=== PATIENT | male | born 1975 | race Caucasian/White ===

== ENCOUNTER 2019-06-14 09:11 | Emergency (ER) | payer SELFPAY ==
[2019-06-14 09:19] VITALS: BP 132/82; PULSE 80; RESP 16; TEMP 36.8; O2SAT 95; BMI 29.5
--- NOTE | 2019-06-14 09:29 | XR_ITS ---
WS: [id number] Chest 2 views, 06/14/2019 Clinical Data: pain Comparison: PA chest, 12/31/2018. Findings: No nodules, masses or effusions are seen. The heart is normal. The pulmonary vascularity is not increased. No pneumonia or pneumothorax is seen. XR/XR chest 2V* [id number] Impression: Negative chest.
[2019-06-14 10:23] LABS: Influenza A by IFA Negative (Negative); Influenza B by IFA Negative (Negative)
--- NOTE | 2019-06-14 11:03 | ED_ITS ---
Entered by Brianne Su, acting as scribe for Millie Vasquez MD, [facility] Jun 14, 2019 09:11 HPI - Fever General: Chief Complaint: Fever Stated Complaint: N/V CP X 7DAYS Time Seen by Provider: 06/14/19 09:17 Source: patient Mode of arrival: ambulatory Limitations: no limitations History of Present Illness: HPI Narrative: 43 yo Male presents to ED with complaint of flu like symptoms x 2 weeks. Pt states that he was recently diagnosed with Ham[place] Spotted Fever and was treated for it just prior to this illness. Pt states that this time started out with chest pains and nausea. Pt states his symptoms then turned into flu like symptoms with high fever, cough, nausea, vomiting, and diarrhea. Pt states that he was treated with a 5 day pack of Zpak. Pt states that he has a history of seizures. MD elicited complaint: fever Onset (ago): week(s) Context: recent antibiotic use Exacerbating factors: nothing Relieving factors: nothing Associated symptoms: Reports abdominal pain, cough, diarrhea, nausea, night sweats and vomiting; Deny back/flank pain, chest pain, dysuria, extremity pain or headache(s) Review of Systems General: Reports: 10 or more systems reviewed and unremarkable except in HPI and below Const: Reports: fever and night sweats; Denies: body aches Eyes: Denies: change in vision, blurry vision or blind spots ENMT: Denies: throat pain, enlarged tonsils, painful swallowing, hoarseness, mouth pain or swelling of lips/tongue Card: Denies: chest pain, palpitations, irregular heart rhythm, edema or swelling of feet/ankles Resp: Denies: shortness of breath, productive cough or non-productive cough GI: Reports: abdominal pain, nausea, vomiting and diarrhea : Denies: flank pain, painful urination, urinary frequency, urinary urgency or urinary hesitancy Musc: Denies: neck pain, back pain, extremity pain, extremity swelling or joint pain Skin/Breast: Denies: rash, itching or redness Neuro: Denies: headache, numbness in extremities or weakness in extremities Endo: Denies: excessive urination, excessive thirst or tired all the time PFS ED PFSH: Statuses (acute, chronic, etc) shown below reflect problem list status as previously entered and may not be historically accurate Social History Smoking and tobacco status: former smoker Physical Exam Const: COMMON NORMALS: no apparent distress, average body habitus, oriented x3, no limitations, healthy appearing, alert and well nourished HENMT: COMMON NORMALS: normocephalic, head/scalp atraumatic and moist oral mucous membranes HEAD & SCALP: normocephalic and atraumatic Eye: COMMON NORMALS: PERRL, EOMs intact bilaterally, conjunctivae normal and no scleral icterus CONJUNCTIVA: Yes conjunctivae normal PUPIL: Yes PERRL Neck/C-Spine: COMMON NORMALS: full ROM, supple, no meningeal signs, no JVD and no carotid bruits Chest: COMMONS NORMALS: inspection of chest normal and palpation of chest normal Resp: COMMON NORMALS: normal respiratory effort, no retractions, no use of accessory muscles and percussion normal; negative for clear to auscultation bilaterally AUSCULTATION: not clear to auscultation bilaterally and rales bilateral throughout PERCUSSION: percussion normal Cardio: COMMON NORMALS: no JVD, regular rate, regular rhythm, S1 normal heart sound, S2 normal heart sound, no gallops, no clicks, no murmurs, no rub and peripheral pulses 2+ throughout RATE: regular rate RHYTHM: regular rhythm HEART SOUNDS: S1 normal and S2 normal PERIPHERAL PULSES: pulses 2+ thro ughout GI: COMMON NORMALS: normal to inspection, nondistended, normoactive bowel sounds, soft to palpation, non-tender, no hepatosplenomegaly, no masses and no bruits PALPATION: Yes soft and Yes no hepatosplenomegaly : COMMON NORMALS: Yes no CVA tenderness BLADDER/KIDNEY EXAM: Yes no CVA tenderness Back/Pelvis: COMMON NORMALS: no CVA tenderness Extremity: COMMON NORMALS: normal to inspection, full ROM, normal capillary refill, no calf tenderness and no pedal edema Neuro: COMMON NORMALS: oriented x3 SENSORIUM/ORIENTATION: Yes alert MENINGEAL SIGNS: Yes no meningeal signs Skin: COMMON NORMALS: no rashes or lesions noted, no wounds, skin turgor normal, no jaundice, no petechiae and no mottling GENERAL SKIN EXAM: no rashes or lesions noted and turgor normal Course Reevaluation(s): Reevaluation #1: Patient feels much improved following the DuoNeb breathing treatment. He is not coughing anywhere as much as he was. He feels is able to breathe better. Discussed his lab and imaging findings with him. Nothing acute on chest x-ray or labs. Symptoms from his history he appears to have been undertreated for Ham[place] spotted fever I will treat him with a 1 week supply of doxycycline. He voiced understanding and is in agreement with the plan Time: 12:08 Vital Signs: Vital signs: Vital Signs Temperature 98.3 F 06/14/19 09:19 Pulse Rate 87 06/14/19 11:44 Respiratory Rate 24 H 06/14/19 11:44 Blood Pressure 120/74 06/14/19 11:44 Pulse Oximetry 92 06/14/19 11:44 MDM - Fever MDM Narrative: Medical decision making narrative: 43-year-old gentleman who presents to the emergency department with cough, congestion, fevers that have been on and off for about a week. He was apparently recently diagnosed with Hamorton spotted fever but was treated with a 5-day course of azithromycin. The patient has no known drug allergies. Evaluation in the ED was unremarkable although the patient obtain much improvement following a DuoNeb breathing treatment. I believe the patient has bronchitis and will treat him as such. However because he has been undertreated for Hamorton spotted fever I will also treat him for that. Medical Records: Attestation: I reviewed the patient's medical records. Lab Data: Attestation: I reviewed the patient's lab results. Labs: Lab Results 06/14/19 06/14/19 06/14/19 Range/Units 09:41 11:32 11:32 WBC 7.4 (4.0-10.0) 10^3/ uL RBC 5.17 (4.1-5.3) 10^6/u L Hgb 13.9 (11.7-16.6) g/dL Hct 41.9 L (42.0-52.0) % MCV 81.0 (80-94) fL MCH 26.9 L (28.0-34.0) pg MCHC 33.2 (30.0-36.0) g/dL RDW 12.6 (12.1-15.1) % Plt Count 423 H (130-400) 10^3/c mm MPV 8.9 (7.4-10.4) fL Neut % (Auto) 68.5 % Lymph % (Auto) 21.7 % [place] % (Auto) 6.7 % Eos % (Auto) 0.0 % Baso % (Auto) 0.4 % Neut # (Auto) 5.1 (1.8-7.7) 10^3/u L Lymph # (Auto) 1.6 (0.8-4.8) 10^3/u L [place] # (Auto) 0.5 (0.2-0.9) 10^3/u L Eos # (Auto) 0.0 (0.0-0.8) 10^3/u L Baso # (Auto) 0.0 (0.0-0.1) 10^3/u L Nucleated RBC % (a uto) 0 % Nucleated RBCs # 0.0 /100WBC Sodium 137 (136-145) mmol/L Potassium 4.1 (3.5-5.1) mmol/L Chloride 100 (98-107) mmol/L Carbon Dioxide 27 (22-29) mmol/L Anion Gap 14.1 (5-19) BUN 11 (6-20) mg/dL Creatinine 1.0 (0.7-1.2) mg/dL GFR Calculation 80.8 L (90-130) mL/min Glucose 128 H (74-109) mg/dL Calcium 9.4 (8.5-10.5) mg/dL Total Bilirubin 0.3 (0.15-1.2) mg/dL AST 25 (0-40) U/L ALT 34 (0-41) U/L Alkaline Phosphata se 195 H (40-130) IU/L C-Reactive Protein 75.1 H (0.0-4.9) mg/L Total Protein 7.0 (6.6-8.7) g/dL Albumin 3.8 (3.5-5.2) g/dL Globulin 3.2 (1.3-4.6) g/dL Influenza Type A A g Negative (Negative) POC Influenza B Ag Negative (Negative) Imaging Data^: CXR: Radiologist's impression: [address] [address] XRay Report Signed Patient: Dmitry Quintero Jr #: [id number] : 1975Acct#:[id number] Age/Sex: 43 / MADM Date: 06/14/19 [facility] Dr: Ordering Provider/Ordering MD: Rina Cerrato MD Date of Service: 06/14/19 Procedure(s): XR chest 2V* 19493 Accession Number(s): [id number] Report Number: [id number] WS: [id number] Chest 2 views, 06/14/2019 Clinical Data: pain Comparison: PA chest, 12/31/2018. Findings: No nodules, masses or effusions are seen. The heart is normal. The pulmonary vascularity is not increased. No pneumonia or pneumothorax is seen. XR/XR chest 2V* [id number] Impression: Negative chest. Dictated By:Nabila Jo MD Signed By:Nabila Jo MDSigned Date/Time:06/14/19949 DD/ 8 Discharge Plan Discharge Patient Disposition: Home, Self-Care Clinical Impression: History of Hamorton spotted fever Acute bronchitis Qualifiers: Bronchitis organism: unspecified organism Qualified Code(s): J20.9 - Acute bronchitis, unspecified Condition: Stable Prescriptions: New doxycycline hyclate 100 mg capsule 100 mg PO BID 7 Days Qty: 14 RF: 0 prednisone 20 mg tablet 40 mg PO DAILY 5 Days Qty: 10 RF: 0 albuterol sulfate 90 mcg/actuation HFA aerosol inhaler 1 inh INHALATION Q4H PRN (Reason: shortness of breath or wheezing) Qty: 8.5 RF: 0 Discharge Orders: Discharge Order (Routine); Ordered 06/14/19 Ordered By: Millie Vasquez Referrals: Larissa Chavis FNP [Family Provider] - 1-3 days Discharge Diet: Usual diet Discharge Activity: Resume usual activity Patient Instructions: Acute Bronchitis (ED), Ham[place] Spotted Fever (ED) Activity Restrictions/Additional Instructions: Return for any new or worsening symptoms. Use the inhaler every 4 hours while awake for the next 2 days, then as needed thereafter. Take the other medications as prescribed. Follow-up with your primary care provider within 3 days. Coding Level of Care Code ED Surgical Clinical Reviewer for Chg Fwd Exam Problem Focused The documentation recorded by the Sharlene bragg Carmen, accurately reflects the service I personally performed and the decisions made by , Millie Vasquez MD, [facility] Jun 14, 2019 09:11
[2019-06-14] MEDS: ipratropium-albuterol 3 mL Neb INHALATION (11:34)
[2019-06-14 11:35] VITALS: PULSE 78; RESP 20; O2SAT 94
[2019-06-14 11:39] LABS: Basophils % 0.4 %; Hematocrit 41.9 % (42.0-52.0); Hemoglobin 13.9 g/dL (11.7-16.6); Lymphocytes # 1.6 10^3/uL (0.8-4.8); Lymphocytes % 21.7 %; Mean Corpuscular HGB Conc 33.2 g/dL (30.0-36.0); Mean Corpuscular Hemoglobin 26.9 pg (28.0-34.0); Mean Platelet Volume 8.9 fL (7.4-10.4); Monocytes # 0.5 10^3/uL (0.2-0.9); Monocytes % 6.7 %; Neutrophils # 5.1 10^3/uL (1.8-7.7); Neutrophils % 68.5 %; Nucleated Red Blood Cells % 0 %; Platelet Count 423 10^3/cmm (130-400); Red Blood Count 5.17 10^6/uL (4.1-5.3); Red Cell Distribution Width 12.6 % (12.1-15.1); White Blood Count 7.4 10^3/uL (4.0-10.0)
[2019-06-14 11:41] VITALS: PULSE 89; RESP 20; O2SAT 94
[2019-06-14 11:44] VITALS: BP 120/74; PULSE 87; RESP 24; O2SAT 92
[2019-06-14 11:55] LABS: Alanine Aminotransferase 34 U/L (0-41); Albumin Level 3.8 g/dL (3.5-5.2); Alkaline Phosphatase 195 IU/L (40-130); Anion Gap 14.1 (5-19); Aspartate Amino Transferase 25 U/L (0-40); Blood Urea Nitrogen 11 mg/dL (6-20); C Reactive Protein 75.1 mg/L (0.0-4.9); Calcium 9.4 mg/dL (8.5-10.5); Carbon Dioxide 27 mmol/L (22-29); Chloride 100 mmol/L (98-107); Globulin 3.2 g/dL (1.3-4.6); Glomerular Filtration Rate 80.8 mL/min (90-130); Glucose 128 mg/dL (74-109); Potassium 4.1 mmol/L (3.5-5.1); Sodium 137 mmol/L (136-145); Total Bilirubin 0.3 mg/dL (0.15-1.2)
[2019-06-14 12:40] VITALS: BP 122/81; PULSE 102; RESP 18; TEMP 37.2; O2SAT 96
== END 2019-06-14 12:43 | disposition home or self-care (01) ==
PROVIDERS: Emergency Medicine; Emergency Provider Family Medicine; Family Provider Nurse Practitioner
DX: J20.9 Acute bronchitis, unspecified (principal); Z87.891 Personal history of nicotine dependence
CPT/HCPCS: 36415; 71046; 80053; 85025; 86140; 87804; 94640; 99281; 99283

== ENCOUNTER → 2019-08-12 09:10 | Outpatient (BNVA) | payer SELFPAY | PROVIDERS: Family Provider Nurse Practitioner; PCP Nurse Practitioner; Visit Provider Specialist | DX: G40.909 Epilepsy, unspecified, not intractable, without status epilepticus (principal); F41.9 Anxiety disorder, unspecified; F32.9 Major depressive disorder, single episode, unspecified; Z87.891 Personal history of nicotine dependence | CPT/HCPCS: 99214 ==

== ENCOUNTER → 2019-08-13 07:47 | Outpatient (BNVA) | payer SELFPAY | PROVIDERS: Family Provider Nurse Practitioner; PCP Nurse Practitioner; Visit Provider Specialist | DX: R56.9 Unspecified convulsions (principal); Z87.891 Personal history of nicotine dependence | CPT/HCPCS: 95816 ==

== ENCOUNTER 2019-08-22 10:15 | Outpatient (CLI) | payer SELFPAY ==
--- NOTE | 2019-08-22 10:19 | MR_ITS ---
WS: [id number] MRI BRAIN WITHOUT CONTRAST HISTORY: SEIZURES COMPARISON: 01/13/2012 TECHNIQUE: Diffusion imaging, multiplanar T1, T2 and FLAIR imaging obtained. Additional high resoluti on coronal T2 sequence. No evidence for acute infarct or hemorrhage. Dos Santos-white matter differentiation is normal. Increased signal adjacent to the RIGHT lateral ventricle is similar to the prior study. Probably from old injury. No progression. No new areas of signal abnormality. Symmetric appearance of the hippocam pal formation. No atrophy. No sclerosis. Ventricles and extra-axial spaces are normal. No inferior displacement of cerebellar tonsils. The sella turcica and pituitary gland are unremarkabl e. Posterior fossa is also unremarkable. Dural venous sinuses and [place] demonstrate no abnormality on this unenhanced studies. Paranasal sinuses: Moderate to severe mucoperiosteal thickening in the RIGHT maxillary and LEFT sphen oid sinus. Mild mucoperiosteal thickening in the LEFT maxillary and RIGHT frontal sinus. Mastoid air cells: Normal. Calvarium and scalp: Intact. MR/MR head wo con* [id number] IMPRESSION: 1. No acute infarct or mass. 2. Focal area of increased signal intensity adjacent to the RIGHT lateral vent ricle was present on the prior study and not increased in size. Likely an area of gliosis or prior infarction. 3. Normal hippocampal formations. 4. Sinusitis. Most significant involving the maxillary and sphenoid sinuses an d RIGHT frontal.
== END 2019-08-22 10:16 | disposition home or self-care (01) ==
LOC: RADWPI 10:18
PROVIDERS: Family Provider Nurse Practitioner; PCP Nurse Practitioner; Visit Provider Specialist
DX: G40.89 Other seizures (principal); J32.9 Chronic sinusitis, unspecified
CPT/HCPCS: 70551

== ENCOUNTER → 2019-11-12 09:01 | Outpatient (BNVA) | payer SELFPAY | PROVIDERS: Family Provider Nurse Practitioner; PCP Nurse Practitioner; Visit Provider Specialist | DX: G40.209 Localization-related (focal) (partial) symptomatic epilepsy and epileptic syndromes with complex partial seizures, not intractable, without status epilepticus (principal); F41.9 Anxiety disorder, unspecified; F32.9 Major depressive disorder, single episode, unspecified | CPT/HCPCS: 99214 ==

== ENCOUNTER → 2020-06-22 11:01 | Outpatient (BNVA) | payer SELFPAY | PROVIDERS: Family Provider Nurse Practitioner; PCP Nurse Practitioner; Visit Provider Family Medicine | DX: Z13.6 Encounter for screening for cardiovascular disorders (principal); R35.1 Nocturia; K21.9 Gastro-esophageal reflux disease without esophagitis | CPT/HCPCS: 80053; 80061; 84153; 85025 ==

== ENCOUNTER → 2020-08-12 11:36 | Outpatient (BNVA) | payer SELFPAY | PROVIDERS: Family Provider Nurse Practitioner; PCP Family Medicine; Visit Provider Specialist | DX: G40.209 Localization-related (focal) (partial) symptomatic epilepsy and epileptic syndromes with complex partial seizures, not intractable, without status epilepticus (principal); F17.220 Nicotine dependence, chewing tobacco, uncomplicated | CPT/HCPCS: 99214 ==

== ENCOUNTER → 2021-02-16 13:40 | Outpatient (BNVA) | payer MEDICAID, SELFPAY | PROVIDERS: Family Provider Nurse Practitioner; PCP Family Medicine; Visit Provider Specialist | DX: G40.209 Localization-related (focal) (partial) symptomatic epilepsy and epileptic syndromes with complex partial seizures, not intractable, without status epilepticus (principal); G40.409 Other generalized epilepsy and epileptic syndromes, not intractable, without status epilepticus; F17.220 Nicotine dependence, chewing tobacco, uncomplicated | CPT/HCPCS: 99213 ==

== ENCOUNTER 2021-08-07 18:22 | Emergency (ER) | payer MEDICARE, MEDICAID, SELFPAY ==
[2021-08-07 18:28] VITALS: BP 145/97; PULSE 65; RESP 16; TEMP 36.9; O2SAT 96; BMI 30.7
--- NOTE | 2021-08-07 18:48 | ECG_ITS ---
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 Measurements Intervals Joshua Rate: 67 P: 39 FL: 163 QRS: -13 QRSD: 99 T: 37 QT: 356 QTc: 377 Interpretive Statements SINUS RHYTHM No previous ECG available for comparison Electronically Signed On 08-09-2021 9:02:07 CDT by lBaze De Paz M.D. [id number]
--- NOTE | 2021-08-07 18:48 | XRR_ITS ---
PROCEDURE INFORMATION: Exam: XR Chest Exam date and time: 08/07/2021 8:06 PM Age: 45 years old Clinical indication: Pain; Chest pressure; Additional info: Chest pain TECHNIQUE: Imaging protocol: XR of the chest. Views: 1 view. COMPARISON: CR XR chest 2V* [id number] 06/14/2019 9:35 AM FINDINGS: Lungs: Lungs are clear bilaterally. Pleural spaces: No pleural effusion. No pneumothorax. Heart/Mediastinum: The cardiac silhouette and mediastinal contours are unremarkable. Bones/joints: Unremarkable for age. XR/XR chest 1V portable 21001 IMPRESSION: No acute cardiopulmonary process.
[2021-08-07 20:21] VITALS: BP 122/86; PULSE 76; RESP 17; O2SAT 95
--- NOTE | 2021-08-07 20:30 | ED_ITS ---
HPI - Chest Pain General: Chief Complaint: Chest Pain Stated Complaint: Chest Pains Time Seen by Provider: 08/07/21 19:59 Source: patient and family History of Present Illness: 45-year-old male with a history of high cholesterol he tells me. No prior history of coronary disease. He presents with chest pain on and off for the last year. He notes that he awakens from sleep with chest heaviness and pressure, radiating into his arms, with some shortness of breath with it. During the day while working, he is experienced shortness of breath, and tiredness that causes him to want to go lay down and rest, but I don't . Chest pain is resolved currently. MD complaint: chest pain and chest heaviness Pertinent past history: other Onset (ago): month(s) Timing of current episode: episodic Prior episodes: Yes Onset: during rest and during exertion Pain location: substernal Pain radiation: right arm and left arm Severity: moderate Quality: tightness and heaviness Relieving factors: nothing Exacerbating factors: exertion (Sometimes) Associated symptoms: Reports diaphoresis, dyspnea and nausea; Deny abdominal pain, fever(s), leg edema, palpitations, sense of impending doom, syncope or vomiting Treatment prior to arrival: aspirin Risk Factors: Coronary artery disease risk factors: hyperlipidemia Review of Systems Const: Reports: diaphoresis; Denies: fever(s) Eyes: Denies: change in vision ENMT: Denies: throat pain Card: Reports: chest pain; Denies: palpitations or syncope Resp: Reports: dyspnea GI: Reports: nausea; Denies: abdominal pain or vomiting [facility] ED PFSH: Surgical History H/O hernia repair Social History Smoking and tobacco status: current some day smoker (Smokless Tobacco) smokeless tobacco Smokeless tobacco user: chewing tobacco History of recent travel: No Physical Exam Const: GENERAL APPEARANCE: cooperative ORIENTATION/CONSCIOUSNESS: Yes awake, Yes oriented to person, Yes oriented to place and Yes oriented to time HENMT: COMMON NORMALS: normocephalic, atraumatic and Normal external nose present HEAD & SCALP: normocephalic and atraumatic FACE & SINUS: normal facial exam NOSE: Normal external nose present Eye: COMMON NORMALS: Equal, round and reactive pupils present and EOMs intact bilaterally PUPIL: Yes Equal, round and reactive pupils present Chest: COMMONS NORMALS: normal inspection of the chest Resp: COMMON NORMALS: normal respiratory effort, No use of accessory muscles and clear to auscultation bilaterally AUSCULTATION: clear to auscultation bilaterally Cardio: COMMON NORMALS: regular rate and regular rhythm RATE: regular rate RHYTHM: regular rhythm GI: COMMON NORMALS: Normal to inspection, nondistended, normoactive bowel sounds present, Soft to palpation and non-tender PALPATION: Yes Soft to palpation Neuro: [place] COMA SCALE: document GCS findings [place] coma scale eye opening: Spontaneous [place] coma scale verbal response: Orientated [place] coma scale motor response: [place] commands [place] coma scale total score: 15 SENSORIUM/ORIENTATION: Yes oriented to person, Yes oriented to place and Yes oriented to time Course Vital Signs: Vital signs: Vital Signs Temperature 98.5 F 08/07/21 18:28 Pulse Rate 66 08/07/21 21:35 Respiratory Rate 17 08/07/21 21:35 Blood Pressure 113/83 08/07/21 21:35 Pulse Oximetry 95 08/07/21 21:35 MDM - Chest Pain Medical Decision Making CBC is normal. BMP is normal. First troponin is 8. EKG shows a normal sinus rhythm with normal axis and intervals. There are no acute ST changes. He has had pain on and off for a year. He has had pain most of the day today. Chest x-ray is normal as well. I suspect with lying flat at night, this may be GI cause. We will treat him for this. We will also have case management set him up for an outpatient stress test Lab Data : 08/07/21 20:18 08/07/21 20:18 Radiology Impressions Chest X-Ray 08/07/21 18:48 IMPRESSION: No acute cardiopulmonary process. Laboratory Results WBC 7.9 10^3/uL (4.0-10.0) 08/07/21 20:18 RBC 5.72 10^6/uL (4.1-5.3) H 08/07/21 20:18 Hgb 16.1 g/dL (11.7-16.6) 08/07/21 20:18 Hct 47.9 % (42.0-52.0) 08/07/21 20:18 MCV 83.7 fl (80-94) 08/07/21 20:18 MCH 28.1 pg (28.0-34.0) 08/07/21 20:18 MCHC 33.6 g/dL (30.0-36.0) 08/07/21 20:18 RDW 12.6 % (12.1-15.1) 08/07/21 20:18 Plt Count 314 10^3/cmm (130-400) 08/07/21 20:18 MPV 10.3 fL (7.4-10.4) 08/07/21 20:18 Neut % (Auto) 52.6 % 08/07/21 20:18 Lymph % (Auto) 35.2 % 08/07/21 20:18 [place] % (Auto) 8.4 % 08/07/21 20:18 Eos % (Auto) 2.9 % 08/07/21 20:18 Baso % (Auto) 0.5 % 08/07/21 20:18 Neut # (Auto) 4.13 10^3/uL (1.8-7.7) 08/07/21 20:18 Lymph # (Auto) 2.8 10^3/uL (0.8-4.8) 08/07/21 20:18 [place] # (Auto) 0.7 10^3/uL (0.2-0.9) 08/07/21 20:18 Eos # (Auto) 0.2 10^3/uL (0.0-0.8) 08/07/21 20:18 Baso # (Auto) 0.0 10^3/uL (0.0-0.1) 08/07/21 20:18 Nucleated RBC % (auto) 0 % 08/07/21 20:18 Nucleated RBCs # 0.0 /100WBC 08/07/21 20:18 Sodium 139 mmol/L (136-145) 08/07/21 20:18 Potassium 3.6 mmol/L (3.5-5.1) 08/07/21 20:18 Chloride 101 mmol/L (98-107) 08/07/21 20:18 Carbon Dioxide 26 mmol/L (22-29) 08/07/21 20:18 Anion Gap 15.6 (5-19) 08/07/21 20:18 BUN 14 mg/dL (6-20) 08/07/21 20:18 Creatinine 1.2 mg/dL (0.7-1.2) 08/07/21 20:18 GFR Calculation 64.9 mL/min (90-130) L 08/07/21 20:18 Glucose 87 mg/dL (65-115) 08/07/21 20:18 Calculated Osmolality 288 mOsm/kg (285-295) 08/07/21 20:18 Calcium 9.7 mg/dL (8.5-10.5) 08/07/21 20:18 Troponin T Baseline 8 ng/L (0-15) 08/07/21 20:18 Discharge Plan Discharge Patient Disposition: Home Clinical Impression: Chest pain Condition: Stable Prescriptions: New Prevacid 30 mg capsule,delayed release(DR/EC) 30 mg PO DAILY Qty: 30 0RF No Action lamotrigine [Lamictal] 200 mg tablet 200 mg PO BID Qty: 60 11RF Discharge Orders: Discharge ED (Routine); Ordered 08/07/21 Ordered By: John Del Valle Referrals: Yue Sierra DO [Primary Care Provider] - 4-7 days Discharge Diet: Advance as tolerated Discharge Activity: Increase activity as tolerated Patient Instructions: Chest Pain (ED) Activity Restrictions/Additional Instructions: Return for worsening pain despite treatment, shortness of breath, fever greater than 100, cough, sputum production, any other concerning symptoms. Case management will set you up for an outpatient stress test. You should hear from them early in the week to set up an appointment. Results will go to your doctor. Coding Level of Care Code ED Glass Toughening Operator for Chg Fwd Exam Comprehensive
[2021-08-07 20:35] LABS: Basophils % 0.5 %; Eosinophils # 0.2 10^3/uL (0.0-0.8); Eosinophils % 2.9 %; Hematocrit 47.9 % (42.0-52.0); Hemoglobin 16.1 g/dL (11.7-16.6); Lymphocytes # 2.8 10^3/uL (0.8-4.8); Lymphocytes % 35.2 %; Mean Corpuscular HGB Conc 33.6 g/dL (30.0-36.0); Mean Corpuscular Hemoglobin 28.1 pg (28.0-34.0); Mean Corpuscular Volume 83.7 fl (80-94); Mean Platelet Volume 10.3 fL (7.4-10.4); Monocytes # 0.7 10^3/uL (0.2-0.9); Monocytes % 8.4 %; Neutrophils # 4.13 10^3/uL (1.8-7.7); Neutrophils % 52.6 %; Nucleated Red Blood Cells % 0 %; Platelet Count 314 10^3/cmm (130-400); Red Blood Count 5.72 10^6/uL (4.1-5.3); Red Cell Distribution Width 12.6 % (12.1-15.1); White Blood Count 7.9 10^3/uL (4.0-10.0)
--- NOTE | 2021-08-07 20:48 | ECG_ITS ---
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 Measurements Intervals [place] Rate: 60 P: 42 FL: 179 QRS: 21 QRSD: 106 T: 52 QT: 382 QTc: 384 Interpretive Statements SINUS RHYTHM EARLY REPOLARIZATION [ST ELEVATION WITH NORMALLY INFLECTED T-WAVE] No previous ECG available for comparison Electronically Signed On 08-09-2021 9:07:18 CDT by Blaze De Paz M.D. [email or web address] [id number]
[2021-08-07 20:56] LABS: Anion Gap 15.6 (5-19); Blood Urea Nitrogen 14 mg/dL (6-20); Calcium 9.7 mg/dL (8.5-10.5); Carbon Dioxide 26 mmol/L (22-29); Chloride 101 mmol/L (98-107); Glomerular Filtration Rate 64.9 mL/min (90-130); Glucose 87 mg/dL (65-115); Osmolality Calculated 288 mOsm/kg (285-295); Potassium 3.6 mmol/L (3.5-5.1); Sodium 139 mmol/L (136-145)
[2021-08-07 20:57] LABS: Troponin(5th) Baseline 8 ng/L (0-15)
[2021-08-07 21:35] VITALS: BP 113/83; PULSE 66; RESP 17; O2SAT 95
--- NOTE | 2021-08-10 12:26 | DCPLANNER ---
Addendum entered by Mirta Pepe 09/16/21 17:50: [employer] account manager was notified that patients insurance denied the stress test. [employer] account manager attempted to reach patient to inform him of this, unable to speak with patient at this time. Original Note: [employer] account manager had message to schedule an outpatient stress test for patient. [employer] account manager called patient to confirm that patient still wanted to have the stress test, and who patient sees for primary care. [employer] account manager spoke with patients , was told that patient did want the test and that patient sees Dr. Sierra for primary care. [employer] account manager faxed signed order for stress test to centralized scheduling who will call patient with appointment information.
== END 2021-08-07 21:37 | disposition home or self-care (01) ==
PROVIDERS: Emergency Medicine; Emergency Provider Emergency Medicine; PCP Family Medicine
DX: R07.9 Chest pain, unspecified (principal); F17.220 Nicotine dependence, chewing tobacco, uncomplicated
CPT/HCPCS: 71045; 80048; 84484; 85025; 93005; 99283

== ENCOUNTER 2021-09-03 11:32 | Emergency (ER) | payer MEDICARE, MEDICAID, SELFPAY ==
[2021-09-03 12:06] VITALS: BP 146/98; PULSE 55; RESP 18; TEMP 36.4; O2SAT 99; BMI 32.1
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
[2021-09-03 13:30] VITALS: BP 132/89; PULSE 56; RESP 16; TEMP 36.4; O2SAT 96
[2021-09-03] MEDS: rabies vaccine 2.5 unit SDV IM (13:45)
== END 2021-09-03 14:04 | disposition home or self-care (01) ==
PROVIDERS: Emergency Provider Physician Assistant; PCP Family Medicine
DX: S51.851A Open bite of right forearm, initial encounter (principal); W55.01XA Bitten by cat, initial encounter; Z20.3 Contact with and (suspected) exposure to rabies; Z23 Encounter for immunization; Z29.14 Encounter for prophylactic rabies immune globulin; F17.220 Nicotine dependence, chewing tobacco, uncomplicated
CPT/HCPCS: 90375; 90471; 90675; 96372; 99283

== ENCOUNTER → 2022-02-15 09:14 | Outpatient (BNVA) | payer MEDICARE, MEDICAID, SELFPAY | PROVIDERS: PCP Family Medicine; Visit Provider Specialist | DX: G40.209 Localization-related (focal) (partial) symptomatic epilepsy and epileptic syndromes with complex partial seizures, not intractable, without status epilepticus (principal); R07.9 Chest pain, unspecified; G80.9 Cerebral palsy, unspecified; F81.9 Developmental disorder of scholastic skills, unspecified; F32.A Depression, unspecified; F41.9 Anxiety disorder, unspecified | CPT/HCPCS: 36415; 80053; 84443; 85025; 99214 ==

== ENCOUNTER → 2022-07-20 08:46 | Outpatient (BNVA) | payer MEDICARE, MEDICAID, SELFPAY | PROVIDERS: PCP Family Medicine; Visit Provider Specialist | DX: G40.209 Localization-related (focal) (partial) symptomatic epilepsy and epileptic syndromes with complex partial seizures, not intractable, without status epilepticus (principal); G40.409 Other generalized epilepsy and epileptic syndromes, not intractable, without status epilepticus | CPT/HCPCS: 99213 ==

== ENCOUNTER → 2023-01-03 13:15 | Outpatient (BNVA) | payer MEDICARE, MEDICAID, SELFPAY | PROVIDERS: PCP Family Medicine; Visit Provider Orthopaedic Surgery | DX: M51.37 Other intervertebral disc degeneration, lumbosacral region (principal) | CPT/HCPCS: 72110; 99204 ==

== ENCOUNTER 2023-01-17 07:09 | Outpatient (CLI) | payer MEDICARE, MEDICAID, SELFPAY ==
--- NOTE | 2023-01-17 07:15 | MR_ITS ---
WS: [id number] MRI LUMBAR SPINE WITH AND WITHOUT CONTRAST HISTORY: Lumbar pain COMPARISON: None available. TECHNIQUE: Sagittal and axial multisequence imaging is submitted. Postcontrast MultiHance 20 mL IV. Mild cervical spondylosis. Mild disc or osteophyte encroachment upon the ventral thecal sac at C3-4 a nd C6-7. Normal lumbar alignment with no compression fractures or marrow edema. Mild disc desiccation at L4-5 and L5-S1. Conus terminates normally at L1-2 disc level. L1-L2: Mild facet disease. No stenosis. L2-L3: Mild ligamentum flavum and facet arthritis. No stenosis. L3-L4: Mild diffuse annular disc bulging with moderate ligamentum flavum and facet arthritis. There i s mild disc encroachment upon the traversing L4 nerve roots. Slightly greater on the RIGHT. Mild to m oderate RIGHT foraminal stenosis due to shallow disc protrusion and osteophyte. L4-L5: Diffuse annular disc bulge with a central disc shallow protrusion. Moderate ligamentum flavum and facet arthritis. There is disc encroachment upon the traversing L5 nerve roots. Slightly greater displacement of the LEFT traversing nerve root. Mild bilateral foraminal stenosis. L5-S1: Mild annular disc bulge with a shallow central disc protrusion. Moderate facet joint arthritis . Encroachment upon the thecal sac and subarticular recesses. There is disc and osteophyte and facet arthritis encroaching upon the traversing RIGHT S1 nerve root. Mild bilateral foraminal stenosis. No discitis or osteomyelitis. No enhancing lesions. IMPRESSION: 1. No discitis or osteomyelitis. 2. L3-4: Mild disc and facet facet arthropathy encroachment upon the traversing L4 nerve roots, LEFT greater than RIGHT. 3. L4-5 moderate ligamentum flavum and facet arthritis. Disc encroachment upon the traversing L5 nerv e roots. Slightly greater displacement of the LEFT traversing nerve root. Mild bilateral foraminal st enosis. 4. L5-S1: Moderate facet joint arthropathy. Disc bulging and shallow central disc protrusion. Combina tion of findings encroaching upon the traversing RIGHT S1 nerve root in the subarticular recess. Johnathan tional mild bilateral foraminal stenosis.
[2023-01-17] MEDS: gadobenate dimeglumine 20 mL vial IV (08:14)
== END 2023-01-17 07:10 | disposition home or self-care (01) ==
LOC: RAD 07:13
PROVIDERS: PCP Family Medicine; Visit Provider Orthopaedic Surgery
DX: M47.817 Spondylosis without myelopathy or radiculopathy, lumbosacral region (principal); M48.07 Spinal stenosis, lumbosacral region
CPT/HCPCS: 72158; A9577

== ENCOUNTER → 2023-02-15 09:29 | Outpatient (BNVA) | payer MEDICARE, MEDICAID, SELFPAY | PROVIDERS: PCP Family Medicine; Visit Provider Specialist | DX: G40.802 Other epilepsy, not intractable, without status epilepticus (principal); M51.9 Unspecified thoracic, thoracolumbar and lumbosacral intervertebral disc disorder | CPT/HCPCS: 99214; 99215 ==

== ENCOUNTER → 2023-04-27 12:52 | Outpatient (BNVA) | payer MEDICARE, MEDICAID, SELFPAY | PROVIDERS: PCP Family Medicine; Visit Provider Nurse Practitioner Family | DX: N40.1 Benign prostatic hyperplasia with lower urinary tract symptoms (principal); R35.1 Nocturia; R39.9 Unspecified symptoms and signs involving the genitourinary system | CPT/HCPCS: 81000 ==

== ENCOUNTER → 2023-05-02 15:36 | Outpatient (BNVA) | payer MEDICARE, MEDICAID, SELFPAY | PROVIDERS: PCP Family Medicine; Visit Provider Family Medicine | DX: R30.0 Dysuria (principal); R35.1 Nocturia | CPT/HCPCS: 84153; 87086 ==

== ENCOUNTER → 2023-07-18 08:01 | Outpatient (BNVA) | payer MEDICARE, MEDICAID, SELFPAY | PROVIDERS: PCP Family Medicine; Referring Provider Specialist; Visit Provider Specialist | DX: R29.90 Unspecified symptoms and signs involving the nervous system (principal); G40.209 Localization-related (focal) (partial) symptomatic epilepsy and epileptic syndromes with complex partial seizures, not intractable, without status epilepticus; G40.802 Other epilepsy, not intractable, without status epilepticus; G31.84 Mild cognitive impairment of uncertain or unknown etiology | CPT/HCPCS: 96116; 99214 ==

== ENCOUNTER 2023-10-16 16:39 | Emergency (ER) | payer MEDICARE, MEDICAID, SELFPAY ==
[2023-10-16 16:49] VITALS: BP 125/76; PULSE 65; RESP 16; TEMP 36.6; O2SAT 96
--- NOTE | 2023-10-16 17:13 | XRR_ITS ---
PROCEDURE INFORMATION: Exam: XR Left Ribs with PA Chest Exam date and time: 10/16/2023 5:31 PM Age: 47 years old Clinical indication: Injury or trauma; Fall; Rib area, left side; Blunt trauma TECHNIQUE: Imaging protocol: Radiologic exam of the left ribs with PA chest. Views: 3 views COMPARISON: CR XR chest 1V portable [id number] 08/07/2021 8:06 PM FINDINGS: Lungs: No focal consolidation. Pleural spaces: No evidence of pneumothorax or pleural effusion. Heart/Mediastinum: Cardiomediastinal silhouette is within normal limits. Bones/joints: No evidence of displaced rib fracture. Old fractures of the right and left posterolateral 6th ribs. Suspected old fracture of the posterior left 8th rib. XR/XR ribs LT mn 3V w CXR1V [id number] IMPRESSION: 1. No evidence of displaced rib fracture. If there is ongoing clinical concern, consider correlation with CT.
--- NOTE | 2023-10-16 19:00 | ED_ITS ---
HPI - Fall General: Chief Complaint: Fall Stated Complaint: fall off roof, left side pain Time Seen by Provider: 10/16/23 18:46 Source: patient Mode of arrival: ambulatory Limitations: no limitations History of Present Illness: 47-year-old male states he had fell off a roof couple days ago states is a 12 foot fall he landed on his left chest wall he has some contusions over his left ribs with some pain. States pain sharp in nature rates it a 4 out of 10 he denies any other injuries denies any head or neck pain denies any abdominal pain has been ambulatory since the event rates his pain a 6 out of 10 currently Associated symptoms-after fall: Reports chest pain; Denies abdominal pain, headache(s) or neck pain Review of Systems Const: Denies: fever(s), chills, body aches or change in appetite ENMT: Denies: throat pain or dental pain Card: Reports: chest pain Resp: Denies: dyspnea GI: Denies: abdominal pain, nausea, vomiting or diarrhea Musc: Denies: neck pain or back pain Skin/Breast: Denies: rash Neuro: Denies: headache(s) PFSH ED PFSH: Surgical History H/O hernia repair Family History Denies family history of Anesthesia complication Social History Smoking and tobacco/nicotine status: former use of tobacco/nicotine Alcohol intake: never Physical Exam Const: COMMON NORMALS: no acute distress, patient oriented x3 and healthy ap pearing HENMT: COMMON NORMALS: normocephalic and atraumatic HEAD & SCALP: normocephalic and atraumatic Eye: COMMON NORMALS: conjunctivae normal CONJUNCTIVA: Yes conjunctivae normal Neck/C-Spine: COMMON NORMALS: full ROM and supple Chest: OTHER: Bruising noted to left chest wall some slight tenderness Resp: COMMON NORMALS: normal respiratory effort, No retractions, No use of accessory muscles and clear to auscultation bilaterally AUSCULTATION: clear to auscultation bilaterally Cardio: COMMON NORMALS: regular rate, regular rhythm and No murmurs present (Cardio) RATE: regular rate RHYTHM: regular rhythm GI: COMMON NORMALS: Normal to inspection, nondistended, normoactive bowel sounds present, Soft to palpation, non-tender and no masses PALPATION: Yes Soft to palpation Extremity: COMMON NORMALS: normal to inspection and full ROM Neuro: COMMON NORMALS: patient oriented x3, moves all extremities and no focal motor deficits Psych: COMMON NORMALS: mental status grossly normal, Normal thought process present and cooperative THOUGHT PROCESS: Normal thought process present Skin: COMMON NORMALS: no rashes or lesions noted and no wounds GENERAL SKIN EXAM: no rashes or lesions noted Course Vital Signs: Vital signs: Vital Signs Temperature 97.9 F 10/16/23 16:49 Pulse Rate 65 10/16/23 16:49 Respiratory Rate 16 10/16/23 16:49 Blood Pressure 125/76 10/16/23 16:49 Pulse Oximetry 96 10/16/23 16:49 Oxygen Delivery Me thod Room Air 10/16/23 16:49 MDM - Fall Medical Decision Making Patient presents for chest wall contusion from a fall imaging here shows no fractures she has no signs of any other injuries he is well-appearing here he is to take ibuprofen for pain he is stable for discharge return if worsening Medical Records I reviewed the patient's medical records. Lab Data Radiology Impressions Ribs X-Ray 10/16/23 17:13 IMPRESSION: 1. No evidence of displaced rib fracture. If there is ongoing clinical concern, consider correlation with CT. All radiology interpretation(s) finalized by discharge Discharge Plan Discharge Patient Disposition: Home Clinical Impression: Chest wall contusion Qualifiers: Encounter type: initial encounter Laterality: left Qualified Code(s): S20.212A - Contusion of left front wall of thorax, initial encounter Condition: Stable Prescriptions: No Action lamotrigine 200 mg tablet 200 mg PO BID Qty: 180 3RF galantamine 4 mg tablet 4 mg PO BID Qty: 60 6RF Rx Instructions: administer with AM and PM meals ciprofloxacin HCl 500 mg tablet 500 mg PO BID Qty: 90 0RF tamsulosin [Flomax] 0.4 mg capsule 0.4 mg PO DAILY Qty: 30 0RF Discharge Orders: Discharge ED (Routine); Ordered 10/16/23 Ordered By: Rina Cerrato Referrals: Yue Sierra DO [Primary Care Provider] - Discharge Diet: Advance as tolerated Discharge Activity: Resume usual activity Patient Instructions: Chest Wall Pain (ED) Coding Level of Care Code ED Supervisor Spring Up for Arianne Herrera
== END 2023-10-16 19:10 | disposition home or self-care (01) ==
PROVIDERS: Emergency Provider Emergency Medicine; PCP Family Medicine
DX: S20.212A Contusion of left front wall of thorax, initial encounter (principal); Z87.891 Personal history of nicotine dependence; W13.2XXA Fall from, out of or through roof, initial encounter
CPT/HCPCS: 71101; 99283

== ENCOUNTER 2023-10-23 08:43 | Emergency (ER) | payer MEDICARE, MEDICAID, SELFPAY ==
[2023-10-23 08:51] VITALS: BP 118/76; PULSE 66; RESP 17; TEMP 36.6; O2SAT 95; BMI 30.4
--- NOTE | 2023-10-23 09:20 | W.ED.ABDPA2 ---
HPI - Abdominal Pain General: Chief Complaint: Abdominal Pain Stated Complaint: Left side rib pain Time Seen by Provider: 10/23/23 08:54 Source: patient Mode of arrival: ambulatory Limitations: no limitations History of Present Illness: Patient is a nice 47-year-old male who presents to ED today with a complaint of abdominal pain. Patient states little over a week ago he fell 12 feet off of a ladder and struck the left side of his chest. Patient was seen here in the emergency department a few days later and had negative rib x-rays performed. Patient states he feels like the pain in his chest is somewhat improving but now has significant discomfort to the left side of his abdomen and is concerned about injury here. He has not noticed any bruising to the abdomen. No lightheadedness or dizziness. He is not having any urinary symptoms. Denies nausea, vomiting, changes in bowel movements. MD elicited complaint: abdominal pain Pertinent past history: none Onset (ago): day(s) Pain Consistency: constant Location: LLQ Severity: moderate Radiation: none Migration to: no migration Context: recent injury Associated Symptoms: Denies change in bowel habits, chills, diarrhea, fever(s), hematuria, nausea, syncope and vomiting Review of Systems Const: Denies: fever(s), chills, body aches, fatigue or malaise Card: Reports: chest pain (L rib pain); Denies: palpitations, irregular heart rhythm, edema, swelling of feet/ankles, lightheadedness, syncope, pre-syncope, dyspnea on exertion, orthopnea, leg pain with exertion or acrocyanosis Resp: Reports: pain on inspiration; Denies: wheezing, hemoptysis or chest congestion GI: Reports: abdominal pain; Denies: nausea, vomiting, diarrhea or change in bowel habits : Denies: flank pain, urinary urgency or hematuria Musc: Denies: neck pain, back pain, extremity pain, extremity swelling, joint pain or joint swelling Skin/Breast: Reports: other (bruising L lateral ribs); Denies: rash Neuro: Denies: headache(s), numbness in extremities, weakness in extremities or sensory changes [facility] ED PFSH: Surgical History H/O hernia repair Family History Denies family history of Anesthesia complication Social History Smoking and tobacco/nicotine status: former use of tobacco/nicotine Alcohol intake: never Physical Exam Const: COMMON NORMALS: no acute distress, average body habitus, patient oriented x3, no limitations, healthy appearing, alert and well nourished HENMT: COMMON NORMALS: normocephalic and atraumatic HEAD & SCALP: normal to inspection, normocephalic and atraumatic; no Guajardo's sign, no hematoma and no raccoon eyes Neck/C-Spine: COMMON NORMALS: full ROM GENERAL: Yes normal visual inspection CERVICAL SPINE: No Cervical spine tenderness Chest: OTHER: old/healing ecchymosis L lateral upper chest/ribs; TTP without obvious crepitus; normal lung sounds Resp: COMMON NORMALS: normal respiratory effort and clear to auscultation bilaterally AUSCULTATION: clear to auscultation bilaterally Cardio: COMMON NORMALS: regular rate and regular rhythm RATE: regular rate RHYTHM: regular rhythm GI: COMMON NORMALS: Normal to inspection, nondistended, normoactive bowel sounds present, Soft to palpation, No hepatosplenomegaly present and no masses INSPECTION: Yes normal to inspection and Yes other (no abdominal ecchymosis/[place]'s/Dos Santos Wilson sign) AUSCULTATION: Yes normoactive bowel sounds PALPATION: Yes Soft to palpation, Yes Tenderness to palpation present (GI) (throughout L side of abdomen), Yes Guarding due to palpation present (GI) and Yes No hepatosplenomegaly present : COMMON NORMALS: Yes no CVA tenderness BLADDER/KIDNEY EXAM: Yes no CVA tenderness Back/Pelvis: COMMON NORMALS: no CVA tenderness and thoracic and lumbar spine normal to inspection Extremity: COMMON NORMALS: normal to inspection GENERAL: Yes normal exam except as noted Neuro: MICHELLE COMA SCALE: document GCS findings Michelle coma scale eye opening: Spontaneous [place] coma scale verbal response: Orientated Michelle coma scale motor response: Obey commands [place]x coma scale total score: 15 COMMON NORMALS: patient oriented x3, moves all extremities, no focal motor deficits, no sensory deficits noted and gait normal SENSORIUM/ORIENTATION: Yes alert Course Vital Signs: Vital signs: Vital Signs Temperature 97.9 F 10/23/23 08:51 Pulse Rate 59 L 06/10/24 09:31 Respiratory Rate 16 10/23/23 09:31 Blood Pressure 108/71 10/23/23 10:30 Pulse Oximetry 93 10/23/23 09:31 Oxygen Delivery Me thod Room Air 10/23/23 09:31 MDM - Abdominal Pain Medical Decision Making CT scan does not show any acute intrathoracic or intra-abdominal trauma. He was found to have acute diverticulitis most likely explaining his left lower abdominal pain. He will be treated with antibiotics as well as pain/nausea medications for this. There was no abscess or perforation present. He was found to have an incidental right renal lesion suspicious for renal neoplasm. When asked, patient does report a family history of kidney cancer. This will need followed up through his primary care provider. Patient was made aware of this finding and will also place discharge/follow-up precautions on his discharge paperwork. Return ED precautions given. Differential Diagnosis Likely abdominal pain and diverticulitis Medical Records I reviewed the patient's medical records. Lab Data I reviewed the patient's lab results. 10/23/23 09:27 10/23/23 09:38 Labs/Radiology: Radiology Impressions Chest/Abdomen/Pelvis CT 10/23/23 09:23 IMPRESSION: 1. Acute diverticulitis involving the LEFT descending colon and proximal sigmoid. No abscess or fluid collection. 2. Enhancing RIGHT renal lesion measuring 1.8 cm suspicious for renal neoplasm. Recommend further evaluation with ultrasound. 3. Enlarged prostate. Recommend correlation PSA. 4. No visualized acute rib fractures. Notified ANUPAMA Lockwood at 10/23/2023 11:08 AM. Laboratory Results WBC 9.20 10^3/uL (3.29-11.43) 10/23/23 09:27 RBC 5.42 10^6/uL (3.85-5.65) 10/23/23 09:27 Hgb 15.40 g/dL (11.27-16.99) 10/23/23 09: Hct 45.0 % (37-53) 10/23/23 09:27 MCV 83.0 fl (82-101) 10/23/23 09: MCH 28.4 pg (27-33) 10/23/23 09: MCHC 34.2 g/dL (30-55) 10/23/23 09: RDW 12.5 % (12.1-15.1) 10/23/23 09: Plt Count 313 10^3/cmm (157-399) 10/23/23 09: MPV 9.6 fL (7.4-10.4) 10/23/23 09:27 Neut % (Auto) 71.3 % 10/23/23 09: Lymph % (Auto) 18.5 % 10/23/23 09: Bucks % (Auto) 6.4 % 10/23/23 09: Eos % (Auto) 3.0 % 10/23/23 09: Baso % (Auto) 0.4 % 10/23/23: Neut # (Auto) 6.55 10^3/uL (1.8-7.7) 10/23/23 09: Lymph # (Auto) 1.7 10^3/uL (0.8-4.8) 10/23/23 09: Bucks # (Auto) 0.6 10^3/uL (0.2-0.9) 10/23/23 09: Eos # (Auto) 0.3 10^3/uL (0.0-0.8) 10/23/23 09: Baso # (Auto) 0.0 10^3/uL (0.0-0.1) 10/23/23 09: Nucleated RBC % (auto) 0 % 10/23/23: Nucleated RBCs # 0.0 /100WBC 10/23/23 09:27 Sodium 140 mmol/L (136-145) 10/23/23 09:38 Potassium 4.3 mmol/L (3.5-5.1) 10/23/23 09:38 Chloride 104 mmol/L (98-107) 10/23/23 09:38 Carbon Dioxide 24 mmol/L (22-29) 10/23/23 09:38 Anion Gap 16.3 (5-19) 10/23/23 09:38 BUN 14 mg/dL (6-20) 10/23/23 09:38 Creatinine 1.0 mg/dL (0.7-1.2) 10/23/23 09:38 GFR Calculation 79.4 mL/min (90-130) L 10/23/23 09:38 Glucose 95 mg/dL (65-115) 10/23/23 09:38 Calculated Osmolality 290 mOsm/kg (285-295) 10/23/23 09:38 Calcium 9.3 mg/dL (8.5-10.5) 10/23/23 09:38 Total Bilirubin 0.7 mg/dL (0.15-1.2) 10/23/23 09:38 AST 14 U/L (0-40) 10/23/23 09:38 ALT 23 U/L (0-41) 10/23/23 09:38 Alkaline Phosphatase 147 U/L (40-130) H 10/23/23 09:38 Total Protein 7.0 g/dL (6.6-8.7) 10/23/23 09:38 Albumin 4.1 g/dL (3.5-5.2) 10/23/23 09:38 Globulin 2.9 g/dL (1.3-4.6) 10/23/23 09:38 All radiology interpretation(s) finalized by discharge Discharge Plan Discharge Patient Disposition: Home Clinical Impression: Diverticulitis, Kidney lesion, [place], right Contusion of rib on left side Qualifiers: Encounter type: subsequent encounter Qualified Code(s): S20.212D - Contusion of left front wall of thorax, subsequent encounter Condition: Stable Prescriptions: New hydrocodone-acetaminophen 5-325 mg tablet 1 tab PO Q6H PRN (Reason: pain) Qty: 14 0RF metronidazole 500 mg tablet 500 mg PO BID 7 Days Qty: 14 0RF ciprofloxacin HCl [Cipro] 500 mg tablet 500 mg PO Q12H Qty: 14 0RF ondansetron 4 mg tablet,disintegrating 4 mg PO Q8H PRN (Reason: nausea and vomiting) Qty: 14 0RF Discontinued ciprofloxacin HCl 500 mg tablet 500 mg PO BID Qty: 90 0RF No Action lamotrigine 200 mg tablet 200 mg PO BID Qty: 180 3RF galantamine 4 mg tablet 4 mg PO BID Qty: 60 6RF Rx Instructions: administer with AM and PM meals tamsulosin [Flomax] 0.4 mg capsule 0.4 mg PO DAILY Qty: 30 0RF Discharge Orders: Discharge ED (Routine); Ordered 10/23/23 Ordered By: Zeina Madrigal Referrals: Lambert,Yue, DO [Primary Care Provider] - Patient Instructions: Diverticulitis (DC), Opioid Safety, Pain Management Activity Restrictions/Additional Instructions: As we discussed you are found to have diverticulitis which is the etiology for your left lower abdominal pain. We will treat you with antibiotics as well as pain and nausea medications for this. Please take your pain medications with stool softeners to avoid constipation. You need to return to the emergency department for onset of fevers, bloody or extremely painful bowel movements, severe abdominal pain, or any other concerns you may have. As we discussed you were found to have an incidental finding of a right renal lesion on your CT scan. This was suspicious for a renal neoplasm/cancer. You have indicated a family history of kidney cancer. This needs followed up with through your primary care provider and additional imaging recommended. Radiologist at this time is recommending further evaluation with an ultrasound. Coding Level of Care Code ED Pediatric Dietician for Arianne Herrera
--- NOTE | 2023-10-23 09:23 | CT_ITS ---
WS: [id number] CT CHEST, ABDOMEN, AND PELVIS TECHNIQUE: Contrast-enhanced CT of the chest, abdomen, and pelvis with coronal and sagittal reformatt ed images. CLINICAL INFORMATION: fall 12 ft; L rib pain, L abdominal pain COMPARISON: CT 06/16/2009 DLP: 1101.[address] scans at [facility] use at least one of these dose optimization techniques: automated e xposure control; mA and/or kV adjustment per patient size (includes targeted exams where dose is matc hed to clinical indication); or iterative reconstruction. CT CHEST: Lungs are well aerated. No acute pulmonary infiltrates. Slight bibasal atelectasis. No acute appearin g LEFT rib fractures. Normal visualized thoracic spine. Nodular RIGHT thyroid. RIGHT thyroid nodule measuring 2.1 cm. Judith l caliber thoracic aorta. Evidence of chronic healed LEFT and RIGHT rib fractures. CT ABDOMEN AND PELVIS: Diffuse fatty infiltration of the liver. Normal portal vein and splenic vein. Normal spleen. Small es ophageal hernia. Adrenal glands are normal. Enhancing RIGHT renal lesion measuring 1.8 cm suspicious for renal neoplasm. This can be followed up with ultrasound and urology consultation. Celiac and SMA are patent. Normal caliber abdominal aorta. Enlarged prostate measuring 3.7 x 3.4 cm. Inflammatory stranding and edema involving the LEFT descending and proximal sigmoid colon compatible with acute diverticulitis. No drainable abscess or fluid collection. CT/CT chest abdpel w/*[id number] IMPRESSION: 1. Acute diverticulitis involving the LEFT descending colon and proximal sigmo id. No abscess or fluid collection. 2. Enhancing RIGHT renal lesion measuring 1.8 cm suspicious for renal neoplasm . Recommend further evaluation with ultrasound. 3. Enlarged prostate. Recommend correlation PSA. 4. No visualized acute rib fractures. Notified ANUPAMA Lockwood at 10/23/2023 11:08 AM.
[2023-10-23 09:31] VITALS: BP 108/72; PULSE 59; RESP 16; O2SAT 93
[2023-10-23 09:47] LABS: Basophils % 0.4 %; Eosinophils # 0.3 10^3/uL (0.0-0.8); Lymphocytes # 1.7 10^3/uL (0.8-4.8); Lymphocytes % 18.5 %; Mean Corpuscular HGB Conc 34.2 g/dL (30-55); Mean Corpuscular Hemoglobin 28.4 pg (27-33); Mean Platelet Volume 9.6 fL (7.4-10.4); Monocytes # 0.6 10^3/uL (0.2-0.9); Monocytes % 6.4 %; Neutrophils # 6.55 10^3/uL (1.8-7.7); Neutrophils % 71.3 %; Nucleated Red Blood Cells % 0 %; Platelet Count 313 10^3/cmm (157-399); Red Blood Count 5.42 10^6/uL (3.85-5.65); Red Cell Distribution Width 12.5 % (12.1-15.1)
[2023-10-23] MEDS: iohexol 350 mg/mL 500 mL Btl (per mL) IV (10:29)
[2023-10-23 10:30] VITALS: BP 108/71
[2023-10-23 10:42] LABS: Alanine Aminotransferase 23 U/L (0-41); Albumin Level 4.1 g/dL (3.5-5.2); Alkaline Phosphatase 147 U/L (40-130); Anion Gap 16.3 (5-19); Aspartate Amino Transferase 14 U/L (0-40); Blood Urea Nitrogen 14 mg/dL (6-20); Calcium 9.3 mg/dL (8.5-10.5); Carbon Dioxide 24 mmol/L (22-29); Chloride 104 mmol/L (98-107); Globulin 2.9 g/dL (1.3-4.6); Glomerular Filtration Rate 79.4 mL/min (90-130); Glucose 95 mg/dL (65-115); Osmolality Calculated 290 mOsm/kg (285-295); Potassium 4.3 mmol/L (3.5-5.1); Sodium 140 mmol/L (136-145); Total Bilirubin 0.7 mg/dL (0.15-1.2)
== END 2023-10-23 11:40 | disposition home or self-care (01) ==
PROVIDERS: Emergency Provider Physician Assistant; PCP Family Medicine
DX: S20.212A Contusion of left front wall of thorax, initial encounter (principal); K57.92 Diverticulitis of intestine, part unspecified, without perforation or abscess without bleeding; N28.89 Other specified disorders of kidney and ureter; Z87.891 Personal history of nicotine dependence; W11.XXXA Fall on and from ladder, initial encounter
CPT/HCPCS: 71260; 74177; 80053; 85025; 99285; Q9967

== ENCOUNTER → 2023-11-22 06:23 | Outpatient (CLI) | payer MEDICARE, MEDICAID, SELFPAY ==
--- NOTE | 2023-11-22 06:45 | USR_ITS ---
PROCEDURE INFORMATION: Exam: US Retroperitoneal; Complete; Kidneys and Bladder Exam date and time: 11/22/2023 6:32 AM Age: 47 years old Clinical indication: Condition or disease; Kidney or ureter condition; Other: Mass right kidney; Additional info: Right renal mass TECHNIQUE: Imaging protocol: Real-time ultrasound of the retroperitoneum with image documentation. Complete exam focused on the kidneys and bladder. Total images: 13 COMPARISON: CT chest abdpel w/*[id number] 10/23/2023 10:25 AM FINDINGS: Right kidney: Right renal exophytic mass extending from the lateral cortex of the midpole of the right kidney measures 1.8 x 1.6 x 1.6 cm. Vascularity is demonstrated. Finding concerning for neoplasm. 12.6 cm length of right kidney. Left kidney: 10.8 cm length of left kidney. Left kidney with normal parenchymal echogenicity and no hydronephrosis, calculi, solid masses, nor perinephric fluid collection. Urinary bladder: Prevoid bladder volume calculated at 178 mL. The urinary bladder has a normal appearance. There is a normal wall thickness. No bladder calculi are detected. Prostate: Prostate unremarkable with volume calculated at 23 mL. Aorta: Limited evaluation of abdominal aorta unremarkable. US/US renal BI* [id number] IMPRESSION: Right renal exophytic mass extending from the lateral cortex of the midpole of the right kidney measures 1.8 x 1.6 x 1.6 cm. Vascularity is demonstrated. Finding concerning for neoplasm.
== END | disposition home or self-care (01) ==
LOC: RAD 06:22
PROVIDERS: PCP Family Medicine; Visit Provider Family Medicine
DX: N28.89 Other specified disorders of kidney and ureter (principal)
CPT/HCPCS: 76770

== ENCOUNTER → 2024-01-17 12:31 | Outpatient (BNVA) | payer MEDICARE, MEDICAID, SELFPAY | PROVIDERS: PCP Family Medicine; Visit Provider Specialist | DX: R29.90 Unspecified symptoms and signs involving the nervous system (principal); G40.209 Localization-related (focal) (partial) symptomatic epilepsy and epileptic syndromes with complex partial seizures, not intractable, without status epilepticus; G40.802 Other epilepsy, not intractable, without status epilepticus; G31.84 Mild cognitive impairment of uncertain or unknown etiology | CPT/HCPCS: 99214 ==

== ENCOUNTER → 2024-10-08 09:34 | Outpatient (BNVA) | payer MEDICARE, MEDICAID, SELFPAY | PROVIDERS: PCP Family Medicine; Visit Provider Surgery | DX: Z12.11 Encounter for screening for malignant neoplasm of colon (principal) | CPT/HCPCS: 99024; 99203 ==

== ENCOUNTER → 2024-10-21 09:47 | Outpatient (BNVA) | payer MEDICARE, MEDICAID, SELFPAY | PROVIDERS: PCP Family Medicine; Visit Provider Family Medicine | DX: Z13.6 Encounter for screening for cardiovascular disorders (principal) | CPT/HCPCS: 80053; 80061; 84439; 84443; 85025 ==

== ENCOUNTER 2024-10-30 06:12 | Day surgery (SDC) | payer MEDICARE, MEDICAID, SELFPAY ==
[2024-10-30 06:20] VITALS: BP 106/69; PULSE 66; RESP 18; O2SAT 94; BMI 29.7
[2024-10-30] MEDS: sodium chloride 0.9% 1,000 ML 15 ML IV (06:38)
--- NOTE | 2024-10-30 06:43 | W.PM.OPSUD ---
Surgery/Procedure H&P Update DATE OF PROCEDURE: October 30, 2024 DATE H&P PERFORMED: 10/08/24 H&P UPDATE INFORMATION: I have reviewed H&P completed within last 30 days, I have examined patient prior to procedure, No changes to prior documentation, Changes to prior documentation as noted here and Risks and benefits of the procedure reviewed PLANNED PROCEDURE: Operation Date: 10/30/24 07:40 Proposed Procedures p Colonoscopy 34106 G0121, Z12.11(Not Applicable) - Leroy Bassett MD
--- NOTE | 2024-10-30 06:52 | P.ANESASSM_ITS ---
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 Was Beta Tyler taken within 24 hours: N/A Was Clonidine taken within 24 hours: N/A Last intake: Intake Last Liquid Date 10/29/24 Last Liquid Time 20:00 Last Solid Date 10/28/24 Last Solid Time 18:30 Social No alcohol and No tobacco Exam alert, oriented x 3, clear to auscultation bilaterally and No regular rate & rhythm Airway Submandibular: within normal limits Cervical ROM: within normal limits Mallampati: Class II Dentition: false (upper plate no lower teeth.) Pulmonary None reported CV/HEM None reported Chronic Renal Insufficiency Right Renal Mass, under going treatment patient reports it is cancer denies PET scan. Hepatic None reported GI None reported Metabolic None reported Musc/skel None reported Neuropsych Seizure (epilepsy dx. 8 years prior cant remember his last seizure.) Anesthetic Plan ASA status: 3 Anesthesia: MAC Medications/Allergies Home Medications ?Medication ?Instructions ?Recorded ?Confirmed ?Last Taken ?Type tamsulosin 0.4 mg capsule (Flomax) 0.4 mg PO DAILY #30 caps 05/25/23 10/28/24 10/29/24 06:00 Rx lamotrigine 200 mg tablet 200 mg PO BID #180 tabs 09/0 09/0510/28/24 10/30/24 05:00 Rx ondansetron 8 mg disintegrating 8 mg PO Q8H PRN nausea and 10/29/24 Unknown Rx tablet vomiting #3 tabs Allergies Allergy/AdvReac Type Severity Reaction Status Date / Time No Known Allergies Allergy Verified 10/30/24 06:19 Current Medications Generic Name Dose Route Start Last Admin Trade Name Freq PRN Reason Stop Dose Admin Sodium Chloride 1,000 mls @ 15 mls/hr 10/30/24 06:13 10/30/24 06:38 Sodium Chloride 0.9% IV 10/31/24 06:12 15 mls/hr .Q24H PRN Administration COLONOSCOPY FLUIDS PFSH Anesthesia Medical History Renal cancer Surgical History H/O hernia repair Family History Mother Dementia Denies family history of Anesthesia complication Social History Smoking and tobacco/nicotine status: former use of tobacco/nicotine Second hand smoke exposure: Yes Alcohol intake: never Substance/Drug Use: never Lives independently: Yes Household members: spouse
[2024-10-30 08:03] VITALS: BP 99/50; PULSE 54; RESP 16; TEMP 36.1; O2SAT 95
[2024-10-30 08:24] VITALS: BP 93/70; PULSE 59; RESP 17; O2SAT 94
[2024-10-30 08:43] VITALS: BP 115/78
--- NOTE | 2024-10-30 08:45 | ANE.PACU2 ---
Inpatient post-anesthesia follow up: Airway intact: Yes Vital signs: Temperature 97.0 F Pulse Rate 59 Respiratory Rate 17 Blood Pressure 115/78 Pulse Oximetry 94 Oxygen Delivery Me thod Room Air Oxygen Flow Rate 2 Fraction of Inspir ed Oxygen Hydration adequate: Yes Nausea and vomiting: No Pain level: 1 Mental status: Baseline
== END 2024-10-30 08:45 | disposition home or self-care (01) ==
PROVIDERS: PCP Family Medicine; Visit Provider Surgery
PROC: 0DJD8ZZ Inspection of Lower Intestinal Tract, Via Natural or Artificial Opening Endoscopic (ICD-10-PCS; CPT 45378; principal; 2024-10-30 07:40)
DX: Z12.11 Encounter for screening for malignant neoplasm of colon (principal); G40.909 Epilepsy, unspecified, not intractable, without status epilepticus; Z79.899 Other long term (current) drug therapy; Z87.891 Personal history of nicotine dependence
CPT/HCPCS: G0121; J2704; J7030

== ENCOUNTER 2024-12-05 20:25 | Emergency (ER) | payer MEDICARE, MEDICAID, SELFPAY ==
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
--- OUTSIDE RECORDS SUMMARY | 2024-12-05 20:33 | XMS_ITS | Clinical Summary ---
Author Organization [facility] Address [address] [place] [address] Care Team Providers Care Business Support Manager Name Role Phone Tiffanydominic Derrek Primary Care Provider [phone] Social History Tobacco Use Types Packs/Day Years Used Date Smoking Tobacco: Never Assessed Sex and Gender Information Value Date Recorded Sex Assigned at Not on file Legal Sex Male 10:43 AM EDT Gender Identity Not on file Sexual Orientation Not on file Plan of Treatment Health Maintenance Due Date Last Done Comments Hepatitis B Vaccine (1 of 3 - 19+ 3-dose series) 12/20 Colorectal Cancer Screening: Annual FOBT 2022 Colorectal Cancer Screening: Colonoscopy 2022 Colorectal Cancer Screening: Sigmoidoscopy 2022 Pneumococcal Vaccine: 50+ Years (1 of 1 - PCV) 024 Influenza Vaccine (#1) 2025 Insurance Medicare Medicaid [place] (SKOH0) Care Teams Business Support Manager Relationship Specialty Start Date End Date Derrek Sal [address] [place], [place] [address] PCP - General 12/12/23
--- OUTSIDE RECORDS SUMMARY | 2024-12-05 20:33 | XMS_ITS | Encounter Summary ---
Author Organization [facility] Address [address] [place] [address] Phone Care Team Providers Care Electric Frying Pan Repairer Name Role Phone Derrek Sal Primary Care Provider [phone] Encounter Details Date Type Department Care Team (Late st Contact Info) Description 12/13/2023 Orders Only [facility] [address] [place] [address] Renal mass; Dysuria; Retention of urine, not otherwise specified; Frequency of micturition; Nocturia Social History Tobacco Use Types Packs/Day Years Used Date Smoking Tobacco: Never Assessed Sex and Gender Information Value Date Recorded Sex Assigned at Not on file Legal Sex Male 10:43 AM EDT Gender Identity Not on file Sexual Orientation Not on file documented as of this encounter Plan of Treatment Not on file documented as of this encounter Visit Diagnoses Diagnosis Renal mass Dysuria Retention of urine, not otherwise specified Frequency of micturition Nocturia documented in this encounter Care Teams Electric Frying Pan Repairer Relationship Specialty Start Date End Date Derrek Sal [address] [place] [address] [address] [place] [address] PCP - General 12/12/23 documented as of this encounter
--- NOTE | 2024-12-05 20:45 | ECG_ITS ---
[facility]: [facility]05 Pat Name: Dmitry Quintero Jr Department: Room: Gender: Male Child Day Care Provider: : 1975 Requested By: Jie Abdullahi Order Number: [id number] Reading MD: Measurements Intervals Riley Rate: 73 P: 38 WV: 165 QRS: -18 QRSD: 88 T: 38 QT: 361 QTc: 398 Interpretive Statements SINUS RHYTHM WITH OCCASIONAL VENTRICULAR PREMATURE COMPLEXES [email or web address]
[2024-12-05 20:49] VITALS: BP 115/75; PULSE 70; RESP 16; TEMP 36.7; O2SAT 96; BMI 30.4
--- NOTE | 2024-12-05 22:05 | W.ED.ANIMALB ---
HPI - Animal Bite General: Chief Complaint: Animal Bite Stated Complaint: Cat bite wild Time Seen by Provider: 12/05/24 21:59 Source: patient Mode of arrival: ambulatory Limitations: no limitations History of Present Illness: Patient is a nice 48-year-old male who presents to ED today for evaluation of a cat bite to his right thumb that he sustained earlier today after he was trying to rescue a cat it was stuck in the middle of the road. Animal was a stray. Immunization status unknown. It cannot be quarantined. Patient's tetanus is up-to-date. complaint: animal bite Onset (ago): hour(s) Animal: cat Description of animal: wild animal and immunizations unknown Mechanism: bite Context: provoked Associated symptoms: Reports no associated symptoms; Deny fever(s) Related Data Previous Rx's ?Medication ?Instructions ?Recorded tamsulosin 0.4 mg capsule (Flomax) 0.4 mg PO DAILY #30 caps 05/25/23 lamotrigine 200 mg tablet 200 mg PO BID #180 tabs 01/17/24 ondansetron 8 mg disintegrating 8 mg PO Q8H PRN nausea and 10/29/24 tablet vomiting #3 tabs amoxicillin 875 mg-potassium 1 tab PO BID #14 tabs 12/05/24 clavulanate 125 mg tablet Allergies Allergy/AdvReac Type Severity Reaction Status Date / Time No Known Allergies Allergy Verified 10/30/24 06:19 Review of Systems Const: Denies: fever(s) Musc: Denies: extremity pain, extremity swelling, joint pain or joint swelling Skin/Breast: Reports: other (cat bite R thumb) Neuro: Denies: numbness in extremities or sensory changes [facility] ED PFSH: Medical History Renal cancer Surgical History H/O hernia repair Family History Mother Dementia Denies family history of Anesthesia complication Social History Smoking and tobacco/nicotine status: former use of tobacco/nicotine Second hand smoke exposure: Yes Alcohol intake: never Substance/Drug Use: never Lives independently: Yes Household members: spouse Physical Exam Const: COMMON NORMALS: no acute distress, average body habitus, no limitations, healthy appearing, alert and well nourished Extremity: COMMON NORMALS: full ROM and capillary refill normal GENERAL: Yes normal exam except as noted RIGHT UPPER EXTREMITY: Yes hand & digits OTHER: cat bite/puncture wound distal tip R thumb w/o edema or erythema Neuro: COMMON NORMALS: moves all extremities, no focal motor deficits and no sensory deficits noted SENSORIUM/ORIENTATION: Yes alert Skin: NARRATIVE SKIN EXAM: see above Course Vital Signs: Vital signs: Vital Signs Temperature 98.1 F 12/05/24 20:49 Pulse Rate 70 12/05/24 20:49 Respiratory Rate 16 12/05/24 20:49 Blood Pressure 115/75 12/05/24 20:49 Pulse Oximetry 96 12/05/24 20:49 Oxygen Delivery Me thod Room Air 12/05/24 20:49 MDM - Animal Bite Medical Decision Making Patient's tetanus is up-to-date. He will be started on Augmentin. He will be started on rabies PEP. Wound care/infection precautions discussed. Differential Diagnosis Likely cat bite Medical Records I reviewed the patient's medical records. No radiology studies performed this visit Discharge Plan Discharge Patient Disposition: Home Clinical Impression: Cat bite of right thumb Qualifiers: Encounter type: initial encounter Qualified Code(s): S61.051A - Open bite of right thumb without damage to nail, initial encounter Condition: Stable Prescriptions: New amoxicillin-pot clavulanate 875-125 mg tablet 1 tab PO BID Qty: 14 0RF No Action lamotrigine 200 mg tablet 200 mg PO BID Qty: 180 3RF tamsulosin [Flomax] 0.4 mg capsule 0.4 mg PO DAILY Qty: 30 0RF ondansetron 8 mg tablet,disintegrating 8 mg PO Q8H PRN (Reason: nausea and vomiting) Qty: 3 0RF Discharge Orders: Discharge ED (Routine); Ordered 12/05/24 Ordered By: Zeina Madrigal Referrals: Derrek Sal MD [Primary Care Provider, Family Practice] Patient Instructions: Rabies Vaccine (By injection), Rabies Immune Globulin (By injection), Animal Bite (ED), Patient Portal & Gerry Instructions Activity Restrictions/Additional Instructions: Keep wound clean with warm soap and water. Monitor for signs of infection such as redness, swelling, increased pain, streaking up your hand, fevers. Please seek medical reevaluation of these occur. Please fill your antibiotics in the morning and start them. You have been given a dose prior to discharge. You have been started on the rabies postexposure prophylaxis series. You should have been discharged home with a schedule for the remainder of your vaccinations. Print Language: Yakut Coding Level of Care Code ED Net Ui Developer for Arianne Herrera
[2024-12-05] MEDS: rabies vaccine 2.5 unit SDV IM (22:26)
[2024-12-05] MEDS: rabies IG 300 unit/mL SDV 1 mL 1800 UNIT IM (22:27)
[2024-12-05 22:34] VITALS: BP 108/78; PULSE 76; RESP 16; O2SAT 98
== END 2024-12-05 22:37 | disposition home or self-care (01) ==
PROVIDERS: Emergency Provider Physician Assistant; PCP Family Medicine
DX: S61.051A Open bite of right thumb without damage to nail, initial encounter (principal); W55.01XA Bitten by cat, initial encounter; Z20.3 Contact with and (suspected) exposure to rabies; Z29.14 Encounter for prophylactic rabies immune globulin; Z87.891 Personal history of nicotine dependence
CPT/HCPCS: 90375; 90471; 90675; 93005; 96372; 99283; J9999

== ENCOUNTER 2024-12-08 09:08 | Emergency (ER) | payer MEDICARE, MEDICAID, SELFPAY ==
--- OUTSIDE RECORDS SUMMARY | 2024-12-08 09:12 | XMS_ITS | Clinical Summary ---
Author Organization [facility] Facility Address [address] [place] [address] Care Team Providers Care Copy Worker Name Role Phone Tiffanydominic Derrek Primary Care Provider [phone] Social History Tobacco Use Types Packs/Day Years [...] Vaccine (#1) 2025 Insurance Medicare Medicaid [place] (SKDE0) Care Teams Copy Worker Relationship Specialty Start Date End Date Derrek Sal [address] [place], [place] [address] PCP - General 12/12/23
--- OUTSIDE RECORDS SUMMARY | 2024-12-08 09:12 | XMS_ITS | Clinical Summary ---
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
--- OUTSIDE RECORDS SUMMARY | 2024-12-08 09:12 | XMS_ITS | Encounter Summary ---
Author Organization [facility] Address [address] [place] [address] Phone Care Team Providers Care City Manager Name Role Phone Derrek Sal Primary Care Provider [phone] Encounter Details Date Type Department Care Team (Late st Contact Info) Description 12/13/2023 Orders Only [facility] [address] [place] [address] Renal mass; Dysuria; Retention of [...] Nocturia documented in this encounter Care Teams City Manager Relationship Specialty Start Date End Date Derrek Sal [address] [place] [address] [address] [place] [address] PCP - General 12/12/23 documented as of this encounter
[2024-12-08 09:14] VITALS: BP 109/70; PULSE 59; RESP 16; TEMP 36.6; O2SAT 93; BMI 30.4
--- NOTE | 2024-12-08 09:20 | W.ED.ANIMALB ---
HPI - Animal Bite General: Chief Complaint: Animal Bite Stated Complaint: rabies follow up Time Seen by Provider: 12/08/24 09:10 Source: patient Mode of arrival: ambulatory Limitations: no limitations History of Present Illness: 48-year-old male was bit by a cat 3 days ago he is here for his repeat rabies vaccine. He said no redness or pain at the cat bite on his right thumb denies any fevers has no other complaints this time Associated symptoms: Deny fever(s) or headache(s) Related Data Previous Rx's ?Medication ?Instructions ?Recorded tamsulosin 0.4 mg capsule (Flomax) 0.4 mg PO DAILY #30 caps 05/25/23 lamotrigine 200 mg tablet 200 mg PO BID #180 tabs 01/17/24 ondansetron 8 mg disintegrating 8 mg PO Q8H PRN nausea and 10/29/24 tablet vomiting #3 tabs amoxicillin 875 mg-potassium 1 tab PO BID #14 tabs 12/05/24 clavulanate 125 mg tablet Allergies Allergy/AdvReac Type Severity Reaction Status Date / Time No Known Allergies Allergy Verified 12/08/24 09:14 Review of Systems Const: Denies: fever(s) Musc: Denies: extremity pain Skin/Breast: Denies: rash or erythema Neuro: Denies: headache(s) PFSH ED PFSH: Medical History Renal cancer Surgical History H/O hernia repair Family History Mother Dementia Denies family history of Anesthesia complication Social History Smoking and tobacco/nicotine status: former use of tobacco/nicotine Second hand smoke exposure: Yes Alcohol intake: never Substance/Drug Use: never Lives independently: Yes Household members: spouse Physical Exam Const: COMMON NORMALS: no acute distress HENMT: COMMON NORMALS: normocephalic HEAD & SCALP: normocephalic Resp: COMMON NORMALS: normal respiratory effort Extremity: COMMON NORMALS: normal to inspection Psych: COMMON NORMALS: mental status grossly normal Skin: NARRATIVE SKIN EXAM: No redness noted right thumb Course Vital Signs: Vital signs: Vital Signs Temperature 97.8 F 12/08/24 09:14 Pulse Rate 59 L 12/08/24 09:14 Respiratory Rate 16 12/08/24 09:14 Blood Pressure 109/70 12/08/24 09:14 Pulse Oximetry 93 12/08/24 09:14 MDM - Animal Bite Medical Decision Making Patient presents here for repeat rabies vaccine he has no signs of infection stable for discharge given the rabies vaccine here. Medical Records I reviewed the patient's medical records. No radiology studies performed this visit Discharge Plan Discharge Patient Disposition: Home Clinical Impression: Rabies exposure Condition: Stable Prescriptions: No Action lamotrigine 200 mg tablet 200 mg PO BID Qty: 180 3RF tamsulosin [Flomax] 0.4 mg capsule 0.4 mg PO DAILY Qty: 30 0RF ondansetron 8 mg tablet,disintegrating 8 mg PO Q8H PRN (Reason: nausea and vomiting) Qty: 3 0RF amoxicillin-pot clavulanate 875-125 mg tablet 1 tab PO BID Qty: 14 0RF Discharge Orders: Discharge ED (Routine); Ordered 12/08/24 Ordered By: Rina Cerrato Referrals: Derrek Sal MD [Primary Care Provider, Family Practice] Discharge Diet: Advance as tolerated Discharge Activity: Resume usual activity Patient Instructions: Rabies (ED) Print Language: Japanese Coding Level of Care Code ED Senior Java Ui Developer for Arianne Herrera
[2024-12-08] MEDS: rabies vaccine 2.5 unit SDV IM (09:23)
[2024-12-08 09:36] VITALS: BP 109/70; PULSE 86; O2SAT 95
== END 2024-12-08 09:37 | disposition home or self-care (01) ==
PROVIDERS: Emergency Provider Emergency Medicine; PCP Family Medicine
DX: Z20.3 Contact with and (suspected) exposure to rabies (principal); Z29.14 Encounter for prophylactic rabies immune globulin; Z87.891 Personal history of nicotine dependence; Z85.048 Personal history of other malignant neoplasm of rectum, rectosigmoid junction, and anus
CPT/HCPCS: 90471; 90675; 99283

== ENCOUNTER 2024-12-16 17:59 | Emergency (ER) | payer MEDICARE, MEDICAID, SELFPAY ==
--- OUTSIDE RECORDS SUMMARY | 2024-12-16 18:06 | XMS_ITS | Clinical Summary ---
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
--- OUTSIDE RECORDS SUMMARY | 2024-12-16 18:06 | XMS_ITS | Encounter Summary ---
Author Organization [facility] Address [address] [place] [address] Phone Care Team Providers Care Direct Marketing Coordinator Name Role Phone Derrek Sal Primary Care Provider [phone] Encounter Details Date Type Department Care Team (Late st Contact Info) Description 12/13/2023 Orders Only [facility] [address] [place] [address] Renal mass; Dysuria; Retention of [...] Nocturia documented in this encounter Care Teams Direct Marketing Coordinator Relationship Specialty Start Date End Date Derrek Sal [address] [place] [address] [address] [place] [address] PCP - General 12/12/23 documented as of this encounter
--- OUTSIDE RECORDS SUMMARY | 2024-12-16 18:06 | XMS_ITS | Clinical Summary ---
Author Organization [facility] Facility Address [address] [place] [address] Care Team Providers Care Bell Captain Name Role Phone Tiffanydominic Derrek Primary Care Provider [phone] Social History Tobacco Use Types Packs/Day Years [...] Vaccine (#1) 2025 Insurance Medicare Medicaid [place] Care Teams Bell Captain Relationship Specialty Start Date End Date Derrek Sal [address] [place], [place] [address] PCP - General 12/12/23
[2024-12-16 18:16] VITALS: BP 129/80; PULSE 78; RESP 17; TEMP 37; O2SAT 95; BMI 30.4
[2024-12-16 18:18] VITALS: BP 131/82; RESP 16; O2SAT 98
[2024-12-16 18:39] LABS: Hematocrit 43.5 % (37-53); Hemoglobin 14.40 g/dL (11.27-16.99); Mean Corpuscular HGB Conc 33.1 g/dL (30-55); Mean Corpuscular Hemoglobin 27.5 pg (27-33); Mean Corpuscular Volume 83.2 fl (82-101); Nucleated Red Blood Cells % 0 %; Platelet Count 228 10^3/cmm (157-399); Red Blood Count 5.23 10^6/uL (3.85-5.65); White Blood Count 10.40 10^3/uL (3.29-11.43)
--- NOTE | 2024-12-16 18:41 | W.ED.ABDPA2 ---
HPI - Abdominal Pain General: Chief Complaint: Abdominal Pain Stated Complaint: rabies follow up,also has abd and back pain History of Present Illness: Patient is a 48-year-old gentleman with right-sided renal cancer of unknown etiology, with biopsy 11/21/2024 at [facility], presented to the ED due to bilateral flank pain and suprapubic pain. He describes it for the last 3 days, worsening in nature, and now feels like he is being racked in the scrotum. He describes it as vibration pains bilateral kidneys, low-lying right, left, suprapubic tenderness, and scrotal vibrating. He had nausea without emesis x 1 this morning. No shortness of breath. No cough. Associated Symptoms: Reports dysuria; Denies chills, fever(s), nausea and vomiting Related Data Previous Rx's ?Medication ?Instructions ?Recorded tamsulosin 0.4 mg capsule (Flomax) 0.4 mg PO DAILY #30 caps 05/25/23 lamotrigine 200 mg tablet 200 mg PO BID #180 tabs 01/17/24 ondansetron 8 mg disintegrating 8 mg PO Q8H PRN nausea and 10/29/24 tablet vomiting #3 tabs amoxicillin 875 mg-potassium 1 tab PO BID #14 tabs 12/05/24 clavulanate 125 mg tablet ciprofloxacin HCl 500 mg tablet 500 mg PO Q12H #20 tabs 12/16/24 metronidazole 500 mg tablet 500 mg PO Q8H 10 days #30 tabs 12/16/24 ondansetron 4 mg disintegrating 4 mg PO Q8H PRN nausea and 12/16/24 tablet vomiting 4 days #14 tabs Allergies Allergy/AdvReac Type Severity Reaction Status Date / Time No Known Allergies Allergy Verified 12/08/24 09:14 Review of Systems General: Reports: 10 or more systems reviewed and unremarkable except in HPI and below Const: Denies: fever(s) or chills Eyes: Denies: change in vision or blurry vision ENMT: Denies: throat pain or mouth pain Card: Denies: chest pain or palpitations Resp: Denies: dyspnea or non-productive cough GI: Denies: abdominal pain, nausea or vomiting : Reports: flank pain, difficulty urinating, dysuria and urinary urgency Musc: Denies: neck pain, back pain or extremity pain Skin/Breast: Denies: rash or pruritus PFSH ED PFSH: Medical History (Updated 12/16/24 @ 19:47 by ANUPAMA Riley) Renal cancer Surgical History H/O hernia repair Family History Mother Dementia Denies family history of Anesthesia complication Social History Smoking and tobacco/nicotine status: former use of tobacco/nicotine Second hand smoke exposure: Yes Alcohol intake: never Substance/Drug Use: never Lives independently: Yes Household members: spouse Physical Exam HENMT: COMMON NORMALS: normocephalic and atraumatic HEAD & SCALP: normocephalic and atraumatic Chest: COMMONS NORMALS: normal inspection of the chest and normal palpation of entire chest wall Resp: COMMON NORMALS: normal respiratory effort, No retractions and clear to auscultation bilaterally AUSCULTATION: clear to auscultation bilaterally Cardio: COMMON NORMALS: regular rate and regular rhythm RATE: regular rate RHYTHM: regular rhythm GI: COMMON NORMALS: No hepatosplenomegaly present INSPECTION: No abdominal distension PALPATION: Yes Tenderness to palpation present (GI) Details: LLQ, RLQ and other (suprapubic), No Guarding due to palpation present (GI) and Yes No hepatosplenomegaly present : BLADDER/KIDNEY EXAM: Yes CVA tenderness bilateral Back/Pelvis: GENERAL BACK: Yes CVA tenderness Extremity: COMMON NORMALS: normal to inspection, full ROM and capillary refill normal Course Vital Signs: Vital signs: Vital Signs Temperature 98.6 F 12/16/24 18:16 Pulse Rate 78 12/16/24 18:16 Respiratory Rate 16 12/16/24 18:18 Blood Pressure 123/83 12/16/24 19:49 Pulse Oximetry 96 12/16/24 19:49 Oxygen Delivery Me thod Room Air 12/16/24 18:16 MDM - Abdominal Pain Medical Decision Making Patient is a 48-year-old gentleman with recent right kidney mass diagnosed on incidental finding of CT, status post ablation, presents with low-lying abdominal and flank pain. Urine analysis is benign, CT indicates sigmoid diverticulosis without amendable area of percutaneous drainage. I suspect after reviewing the films, it is sigmoid diverticulitis. Discussed with patient. He will be placed on antibiotics, ciprofloxacin, and metronidazole x 10 days with close follow-up with primary care. I discussed with patient to call tomorrow for an appointment. Medical Records I reviewed the patient's medical records. Lab Data I reviewed the patient's lab results. 12/16/24 18:15 12/16/24 18:15 Labs/Radiology: Radiology Impressions Abdomen/Pelvis CT 12/16/24 18:46 IMPRESSION: Sigmoid diverticulosis without definitive radiographic evidence of focal collection amenable to percutaneous drainage. On the right, presumptive post ablation changes of the right kidney. Clinical correlation recommended. COMMENTS: Consistent with the [employer]'s Incidental Findings Committee white paper (J Am Carmen Radiol 2018): Any incidental renal lesion less than 1 cm or classified as too small to characterize, or any incidental cystic renal lesion characterized as simple-appearing, is likely benign. No follow-up imaging is recommended for these lesions per consensus recommendations based on imaging criteria. Laboratory Results WBC 10.40 10^3/uL (3.29-11.43) 12/16/24 18:15 RBC 5.23 10^6/uL (3.85-5.65) 12/16/24 18:15 Hgb 14.40 g/dL (11.27-16.99) 12/16/24 18:15 Hct 43.5 % (37-53) 12/16/24 18:15 MCV 83.2 fl (82-101) 12/16/24 18:15 MCH 27.5 pg (27-33) 12/16/24 18:15 MCHC 33.1 g/dL (30-55) 12/16/24 18:15 RDW 13.2 % (12.1-15.1) 12/16/24 18:15 Plt Count 228 10^3/cmm (157-399) 12/16/24 18:15 MPV 9.9 fL (7.4-10.4) 12/16/24 18:15 Neut % (Auto) 75.0 % 12/16/24 18:15 Lymph % (Auto) 15.9 % 12/16/24 18:15 Dent % (Auto) 7.0 % 12/16/24 18:15 Eos % (Auto) 1.6 % 12/16/24 18:15 Baso % (Auto) 0.2 % 12/16/24 18:15 Neut # (Auto) 7.80 10^3/uL (1.8-7.7) H 12/16/24 18:15 Lymph # (Auto) 1.7 10^3/uL (0.8-4.8) 12/16/24 18:15 Dent # (Auto) 0.7 10^3/uL (0.2-0.9) 12/16/24 18:15 Eos # (Auto) 0.2 10^3/uL (0.0-0.8) 12/16/24 18:15 Baso # (Auto) 0.0 10^3/uL (0.0-0.1) 12/16/24 18:15 Nucleated RBC % (auto) 0 % 12/16/24 18:15 Nucleated RBCs # 0.0 /100WBC 12/16/24 18:15 Sodium 138 mmol/L (136-145) 12/16/24 18:15 Potassium 3.9 mmol/L (3.5-5.1) 12/16/24 18:15 Chloride 102 mmol/L (98-107) 12/16/24 18:15 Carbon Dioxide 23 mmol/L (22-29) 12/16/24 18:15 Anion Gap 16.9 (5-19) 12/16/24 18:15 BUN 16 mg/dL (6-20) 12/16/24 18:15 Creatinine 1.1 mg/dL (0.7-1.2) 12/16/24 18:15 GFR Calculation 70.9 mL/min (90-130) L 12/16/24 18:15 Glucose 111 mg/dL (65-115) 12/16/24 18:15 Calculated Osmolality 288 mOsm/kg (285-295) 12/16/24 18:15 Calcium 9.0 mg/dL (8.5-10.5) 12/16/24 18:15 Total Bilirubin 0.8 mg/dL (0.15-1.2) 12/16/24 18:15 AST 17 U/L (0-40) 12/16/24 18:15 ALT 27 U/L (0-41) 12/16/24 18:15 Alkaline Phosphatase 90 U/L (40-130) 12/16/24 18:15 Total Protein 6.7 g/dL (6.6-8.7) 12/16/24 18:15 Albumin 4.3 g/dL (3.5-5.2) 12/16/24 18:15 Globulin 2.4 g/dL (1.3-4.6) 12/16/24 18:15 Lipase 24 U/L (13-60) 12/16/24 18:15 Urine Color Yellow (Yellow) 12/16/24 18:33 Urine Appearance Cloudy (CLEAR) A 12/16/24 18:33 Urine pH 7.0 (5-7) 12/16/24 18:33 Ur Specific [place] 1.017 (1.005-1.030) 12/16/24 18:33 Urine Protein Negative (Negative) 12/16/24 18:33 Urine Glucose (UA) Negative (Normal) 12/16/24 18:33 Urine Ketones Negative (Negative) 12/16/24 18:33 Urine Blood Negative (Negative) 12/16/24 18:33 Urine Nitrate Negative (Negative) 12/16/24 18:33 Urine Bilirubin Negative (Negative) 12/16/24 18:33 Urine Urobilinogen 1.0 mg/dL (Negative) 12/16/24 18:33 Ur Leukocyte Esterase Negative (Negative) 12/16/24 18:33 Urine RBC 0-2 /hpf (0-2) 12/16/24 18:33 Urine WBC 0-5 /hpf (0-5) 12/16/24 18:33 Ur Squamous Epith Cells 0-5 /hpf (0-5) 12/16/24 18:33 Amorphous Sediment Not Reportable 12/16/24 18:33 Urine Bacteria None seen /hpf (NONE) 12/16/24 18:33 Hyaline Casts 0-4 /lpf H 12/16/24 18:33 All radiology interpretation(s) finalized by discharge Discharge Plan Discharge Patient Disposition: Home Clinical Impression: Diverticulitis Condition: Stable Prescriptions: New metronidazole 500 mg tablet 500 mg PO Q8H 10 Days Qty: 30 0RF ciprofloxacin HCl 500 mg tablet 500 mg PO Q12H Qty: 20 0RF ondansetron 4 mg tablet,disintegrating 4 mg PO Q8H PRN (Reason: nausea and vomiting) 4 Days Qty: 14 0RF No Action lamotrigine 200 mg tablet 200 mg PO BID Qty: 180 3RF tamsulosin [Flomax] 0.4 mg capsule 0.4 mg PO DAILY Qty: 30 0RF ondansetron 8 mg tablet,disintegrating 8 mg PO Q8H PRN (Reason: nausea and vomiting) Qty: 3 0RF amoxicillin-pot clavulanate 875-125 mg tablet 1 tab PO BID Qty: 14 0RF Discharge Orders: Discharge ED (Routine); Ordered 12/16/24 Ordered By: Kyra Oropeza Referrals: Derrek Sal MD [Primary Care Provider, Family Practice] Discharge Diet: Clear Liquid Discharge Activity: Resume usual activity Patient Instructions: Full Liquid Diet, Diverticulitis (ED), Clear Liquid Diet (ED), Patient Portal & Gerry Instructions Activity Restrictions/Additional Instructions: Clear liquid diet for 48 hours, then advance to full liquid diet if tolerated. Do not drink any type of alcohol while on metronidazole. There is a special reaction that will cause violent nausea and vomiting. Tylenol or ibuprofen for pain. Utilize probiotic or active culture yogurt to avoid infectious diarrhea. Return to ED for worsening pain, nausea, vomiting, fever greater than 100.4 ?F Stand Alone Forms: Work/School Release Print Language: Faroese Coding Level of Care Code ED Feed Preparation Operator for Arianne Herrera
[2024-12-16 18:43] LABS: Glucose Urine UA Negative (Normal); Nitrate Urine Negative (Negative); Specific Gravity, Urine 1.017 (1.005-1.030)
--- NOTE | 2024-12-16 18:46 | CTR_ITS ---
PROCEDURE INFORMATION: Exam: CT Abdomen And Pelvis With Contrast Exam date and time: 12/16/2024 7:06 PM Age: 48 years old Clinical indication: Abdominal pain; Generalized; Additional info: Abdominal pain, known right renal mass TECHNIQUE: Imaging protocol: Computed tomography of the abdomen and pelvis with contrast. Radiation optimization: All CT scans at this facility use at least one of these dose optimization techniques: automated exposure control; mA and/or kV adjustment per patient size (includes targeted exams where dose is matched to clinical indication); or iterative reconstruction. Contrast material: OMNIPAQUE 350; Contrast volume: 100 ml; Contrast route: INTRAVENOUS (IV); COMPARISON: CT chest abdpel w/*[id number] 10/23/2023 10:25 AM RADIATION DOSE METRICS: Total DLP (mGy-cm): 729.13 FINDINGS: Liver: Normal. No mass. Gallbladder and biliary ducts: Normal. No calcified stones. No ductal dilation. Pancreas: Normal. No ductal dilation. Spleen: Normal. No splenomegaly. Adrenal glands: Normal. No mass. Kidneys and ureters: On the right, presumptive post ablation changes of the right kidney. Clinical correlation recommended. Few nonspecific although commonly benign renal cysts. Stomach and bowel: Sigmoid diverticulosis without definitive radiographic evidence of focal collection amenable to percutaneous drainage. Otherwise Unremarkable. No obstruction. No mucosal thickening. Appendix: No evidence of appendicitis. Intraperitoneal space: Unremarkable. No free air. No significant fluid collection. Vasculature: Unremarkable. No abdominal aortic aneurysm. Lymph nodes: Unremarkable. No enlarged lymph nodes. Urinary bladder: Unremarkable as visualized. Reproductive: Unremarkable as visualized. Bones/joints: Mild to Moderate degenerative changes of vertebral bodies with endplate spurring and disc space narrowing. Soft tissues: Probable small fat containing right inguinal hernia. CT/CT abdomen pelvis w con* [id number] IMPRESSION: Sigmoid diverticulosis without definitive radiographic evidence of focal collection amenable to percutaneous drainage. On the right, presumptive post ablation changes of the right kidney. Clinical correlation recommended. COMMENTS: Consistent with the [place] [employer]'s Incidental Findings Committee white paper (J Am Carmen Radiol 2018): Any incidental renal lesion less than 1 cm or classified as too small to characterize, or any incidental cystic renal lesion characterized as simple-appearing, is likely benign. No follow-up imaging is recommended for these lesions per consensus recommendations based on imaging criteria.
[2024-12-16 18:48] LABS: Add Urine Microscopic? YES
[2024-12-16 18:55] VITALS: BP 131/82; O2SAT 94
[2024-12-16 18:58] LABS: Alanine Aminotransferase 27 U/L (0-41); Albumin Level 4.3 g/dL (3.5-5.2); Alkaline Phosphatase 90 U/L (40-130); Anion Gap 16.9 (5-19); Aspartate Amino Transferase 17 U/L (0-40); Blood Urea Nitrogen 16 mg/dL (6-20); Calcium 9.0 mg/dL (8.5-10.5); Carbon Dioxide 23 mmol/L (22-29); Chloride 102 mmol/L (98-107); Creatinine Clr Calc Pharmacy 87.8718; Globulin 2.4 g/dL (1.3-4.6); Glucose 111 mg/dL (65-115); Lipase 24 U/L (13-60); Osmolality Calculated 288 mOsm/kg (285-295); Potassium 3.9 mmol/L (3.5-5.1); Sodium 138 mmol/L (136-145); Total Protein 6.7 g/dL (6.6-8.7)
[2024-12-16] MEDS: iohexol 350 mg/mL 500 mL Btl (per mL) IV (19:07)
[2024-12-16] MEDS: metroNIDAZOLE IV 500 MG/100 ML PREMIX 100 MG IV (19:42)
[2024-12-16 19:49] VITALS: BP 123/83; O2SAT 96
[2024-12-16] MEDS: rabies vaccine 2.5 unit SDV IM (20:54)
== END 2024-12-16 21:00 | disposition home or self-care (01) ==
PROVIDERS: Emergency Medicine; Emergency Provider Physician Assistant; PCP Family Medicine
DX: K57.92 Diverticulitis of intestine, part unspecified, without perforation or abscess without bleeding (principal); Z87.891 Personal history of nicotine dependence; Z85.048 Personal history of other malignant neoplasm of rectum, rectosigmoid junction, and anus
CPT/HCPCS: 36415; 74177; 80053; 81001; 83690; 85025; 90471; 90675; 96374; 96375; 99285; J0744; J3490

== ENCOUNTER 2024-12-25 11:10 | Emergency (ER) | payer MEDICARE, MEDICAID, SELFPAY ==
[2024-12-25 11:14] VITALS: BP 134/79; PULSE 58; TEMP 36.3; O2SAT 95
--- NOTE | 2024-12-25 11:30 | W.ED.RECABL ---
HPI - Recheck/Abnormal Lab/Rx General: Chief Complaint: Recheck/Abnormal Lab/Rx Stated Complaint: rabies follow up Time Seen by Provider: 12/25/24 11:13 Source: patient Mode of arrival: ambulatory Limitations: no limitations History of Present Illness: 51-year-old male is here for his last rabies vaccine after being bit by a cat. There is no other complaints at this time wound is healed no fevers no pain. Related Data Previous Rx's ?Medication ?Instructions ?Recorded tamsulosin 0.4 mg capsule (Flomax) 0.4 mg PO DAILY #30 caps 05/25/23 lamotrigine 200 mg tablet 200 mg PO BID #180 tabs 01/17/24 ondansetron 8 mg disintegrating 8 mg PO Q8H PRN nausea and 10/29/24 tablet vomiting #3 tabs amoxicillin 875 mg-potassium 1 tab PO BID #14 tabs 12/05/24 clavulanate 125 mg tablet ciprofloxacin HCl 500 mg tablet 500 mg PO Q12H #20 tabs 12/16/24 metronidazole 500 mg tablet 500 mg PO Q8H 10 days #30 tabs 12/16/24 Allergies Allergy/AdvReac Type Severity Reaction Status Date / Time No Known Allergies Allergy Verified 12/25/24 11:18 Review of Systems Const: Denies: fever(s) Musc: Denies: extremity pain Skin/Breast: Denies: rash or erythema PFSH ED PFSH: Medical History Renal cancer Surgical History H/O hernia repair Family History Mother Dementia Denies family history of Anesthesia complication Social History Smoking and tobacco/nicotine status: former use of tobacco/nicotine Second hand smoke exposure: Yes Alcohol intake: never Substance/Drug Use: never Lives independently: Yes Household members: spouse Physical Exam Const: COMMON NORMALS: no acute distress HENMT: COMMON NORMALS: normocephalic HEAD & SCALP: normocephalic Eye: COMMON NORMALS: conjunctivae normal CONJUNCTIVA: Yes conjunctivae normal Chest: COMMONS NORMALS: normal inspection of the chest Resp: COMMON NORMALS: normal respiratory effort Extremity: COMMON NORMALS: normal to inspection Course Vital Signs: Vital signs: Vital Signs Temperature 97.3 F L 12/25/24 11:14 Pulse Rate 58 L 12/25/24 11:14 Blood Pressure 134/79 12/25/24 11:14 Pulse Oximetry 95 12/25/24 11:14 Oxygen Delivery Me thod Room Air 12/25/24 11:14 MDM - Recheck/Abnormal Lab/Rx Medical Decision Making Patient presents here for rabies vaccine he is well-appearing here he stable for discharge we will give him his last dose No radiology studies performed this visit Discharge Plan Discharge Patient Disposition: Home Clinical Impression: Rabies exposure Condition: Stable Prescriptions: No Action lamotrigine 200 mg tablet 200 mg PO BID Qty: 180 3RF tamsulosin [Flomax] 0.4 mg capsule 0.4 mg PO DAILY Qty: 30 0RF ondansetron 8 mg tablet,disintegrating 8 mg PO Q8H PRN (Reason: nausea and vomiting) Qty: 3 0RF amoxicillin-pot clavulanate 875-125 mg tablet 1 tab PO BID Qty: 14 0RF metronidazole 500 mg tablet 500 mg PO Q8H 10 Days Qty: 30 0RF ciprofloxacin HCl 500 mg tablet 500 mg PO Q12H Qty: 20 0RF Discharge Orders: Discharge ED (Routine); Ordered 12/25/24 Ordered By: Rina Cerrato Referrals: Derrek Sal MD [[facility]] - 4-7 days Discharge Diet: Advance as tolerated Discharge Activity: Resume usual activity Patient Instructions: Rabies (ED) Print Language: Wolof Coding Level of Care Code ED Strategic Planning Director for Arianne Herrera
[2024-12-25] MEDS: rabies vaccine 2.5 unit SDV IM (11:44)
--- OUTSIDE RECORDS SUMMARY | 2024-12-25 20:43 | XMS_ITS | Clinical Summary ---
[facility] Address [address] [facility] Attn: [place] [address] Care Team Providers Care Evp Strategy Name Role Phone Ramona Pollack MD, Junior [...] on file Legal Sex Male 6:53 AM BOX [employer] Gender Identity Not on file Sexual Orientation [...] 12/21/2023 INFLUENZA VACCINE (#1) 2024 Care Teams Evp Strategy Relationship Specialty Start Date End Date Ramona Pollack, Junior Arambula MD [address] [address] PCP - General Family Practice 06/28/10
--- OUTSIDE RECORDS SUMMARY | 2024-12-25 20:43 | XMS_ITS | Clinical Summary ---
Author Organization [facility] Facility Address [address] [place] [address] Care Team Providers Care [employer] Name Role Phone Tiffanydominic Derrek Primary Care Provider [phone] Social History Tobacco Use Types Packs/Day Years [...] (#1) 2025 [place] Medicare [place] [place] Care Teams [employer] Relationship Specialty Start Date End Date Derrek Sal [address] [place], [place] [address] PCP - General 12/12/23
--- OUTSIDE RECORDS SUMMARY | 2024-12-25 20:43 | XMS_ITS | Encounter Summary ---
Author Organization [facility] [employer], [facility] Address [address] [place] [address] Phone Care Team Providers Care President [employer] Name Role Phone Derrek Sal Primary Care Provider [phone] Encounter Details Date Type Department Care Team (Late st Contact Info) Description 12/13/2023 Orders Only [facility] [employer] [address] [place] [address] Renal mass; Dysuria; Retention of [...] Nocturia documented in this encounter Care Teams President [employer] Relationship Specialty Start Date End Date Derrek Sal [address] [place] [address] [address] [place] [address] PCP - General 12/12/23 documented as of this encounter
== END 2024-12-25 11:45 | disposition home or self-care (01) ==
PROVIDERS: Emergency Provider Emergency Medicine; PCP Family Medicine
DX: Z20.3 Contact with and (suspected) exposure to rabies (principal); Z29.14 Encounter for prophylactic rabies immune globulin; Z87.891 Personal history of nicotine dependence; Z85.53 Personal history of malignant neoplasm of renal pelvis
CPT/HCPCS: 90471; 90675; 99283